=== PATIENT | female | born 1950 | race Caucasian/White ===

== ENCOUNTER 2020-03-05 10:59 | Emergency (ER) | payer MEDICARE, OTHER, SELFPAY ==
--- NOTE | ~2020-03-05 | CT_ITS ---
EXAMINATION: CT brain wo con DATE: 03/05/2020 12:21 INDICATION: Right facial numbness. TECHNIQUE: Computed tomography (CT) of the head was performed without intravenous contrast. The mA wa s adjusted according to patient size. Iterative reconstruction technique was employed. The dose-lengt h product was 529.67 mGy-cm. COMPARISON: None FINDINGS: There is no intracranial hemorrhage, acute infarction, or abnormal intracranial mass lesion . There is an old lacunar infarct in the left caudate nucleus. The ventricles are normal in size. The orbits are normal. There is mild mucosal thickening in the ethmoid sinuses. The mastoid air cells ar e normal. IMPRESSION: 1. Old lacunar infarct in the left caudate nucleus. Reviewed, dictated and finalized at location A.
[2020-03-05 11:22] VITALS: BP 159/84; PULSE 86; PULSE 90; RESP 18; TEMP 36.8; O2SAT 99
--- NOTE | 2020-03-05 11:30 | PC.NURSE ---
Pt taken to CT scan. This RN unable to obtain and IV. Will have another nurse try when pt returns.
--- NOTE | 2020-03-05 12:06 | ECG_ITS ---
Measurements Intervals [place] Rate: 95 P: 66 [place]: 158 QRS: 20 QRSD: 89 T: 51 QT: 328 QTc: 413 Interpretive Statements SINUS RHYTHM POSSIBLE LEFT ATRIAL ENLARGEMENT BORDERLINE ECG Electronically Signed On 03-05-2020 14:07:34 CDT by Marco Nicole D.O.
[2020-03-05 12:40] LABS: Basophils Percent Auto 0.6 % (0.2-1.2); Eosinophils Absolute Auto 0.1 K/mm3 (0-0.3); Eosinophils Percent Auto 0.7 % (0-4.4); Hematocrit 39.2 % (37.0-47.0); Immature Granulocyte Absolute 0.05 K/mm3 (0.00-0.031); Immature Granulocyte Percent A 0.7 % (0-0.5); Lymphocytes Absolute Auto 1.59 K/mm3 (0.9-3.2); Lymphocytes Percent Auto 21.9 % (18.3-44.2); Mean Corpuscular HGB Conc 33.2 g/dl (32-36); Mean Corpuscular Hemoglobin 30.9 pg (26-34); Mean Corpuscular Volume 93.1 fl (80-100); Monocytes Absolute Auto 0.3 K/mm3 (0.1-0.6); Monocytes Percent Auto 4.7 % (2.6-8.5); Neutrophils Absolute Auto 5.2 K/mm3 (1.3-6.7); Neutrophils Percent Auto 71.4 % (45.5-73.1); Platelet Count Result 235 k/mm3 (150-375); Red Blood Count 4.21 M/mm3 (4.2-5.4); Red Cell Distribution Width 12.5 % (11.5-14.5); White Blood Count 7.3 K/mm3 (4.5-10.0)
[2020-03-05 12:49] LABS: Prothrombin Time 12.7 Seconds (11.1-14.7)
[2020-03-05 12:50] LABS: Partial Thromboplastin Time 23.5 SECONDS (22.3-36.8)
[2020-03-05 12:53] LABS: Creatine Kinase 58 U/L (30-135)
[2020-03-05 12:58] LABS: Blood Urea Nitrogen 14 mg/dL (7-17); Calcium 9.2 mg/dL (8.4-10.2); Carbon Dioxide 28 mmol/L (22-30); Chloride 103 mmol/L (98-107); Estimated CRCL calculation 51 ml/min; Estimated Glomerular Filt Rate > 60; Glucose 106 mg/dL (65-105); Potassium 3.9 mmol/L (3.4-5.0); Sodium 137 mmol/L (137-145)
--- NOTE | 2020-03-05 13:00 | ED.GENADULT ---
HPI - General Adult General Chief complaint: Unspecified Stated complaint: r facial numbness Time Seen by Provider: 03/05/20 11:11 Source: patient Mode of arrival: ambulatory Limitations: no limitations History of Present Illness HPI narrative: This patient is a 69 year old female who presents for evaluation of right facial numbness. PAtient reports she has had numbnesss to right side of her face for 1 year. She states initially her symptoms were intermittent, but this numbness has been constant for 2 weeks. She also reports episodes of itching and zinging pain throughout her pain for 1 year . She denies focal weakness, headache, nausea or vomiting. She does not know of any exacerbating factors. Related Data Home Medications Medication Instructions Recorded Confirmed albuterol sulfate INHALATION 03/05/20 benzonatate mg PO 03/05/20 nitrofurantoin monohyd/m-cryst 100 03/05/20 prednisone 20 03/05/20 Allergies Allergy/AdvReac Type Severity Reaction Status Date / Time NKDA Allergy Mild Unknown Uncoded 03/05/20 11:29 NKFA Allergy Mild Unknown Uncoded 03/05/20 11:29 Review of Systems Review of Systems: All systems reviewed & are unremarkable except as noted in HPI and below Constitutional: Constitutional: Denies chills and Denies fever(s) ENT: Denies dizziness and Denies sore throat Cardiovascular: Cardiovascular: Denies chest pain Respiratory: Respiratory: Denies cough and Denies dyspnea Musculoskeletal: Musculoskeletal: Reports myalgias Integumentary/Breasts: Skin/Breast: Reports pruritus Neurologic: Denies headache(s), Denies focal weakness and Reports numbness PMFSH Past Medical History Medical History (Updated 03/05/20 @ 14:14 by Kita Rowell MD) Breast cancer Hypertension Surgical History Surgical History (Updated 03/05/20 @ 13:01 by Kita Rowell MD) H/O: hysterectomy Family History Family History (Updated 03/14/16 @ 23:21 by DOCTOR UNKNOWN) Mother Patient's mother is in good health Other Hypertension Social History Social History Smoking status: Never smoker Second hand tobacco smoke exposure: No Alcohol intake: current Gender identity (if verbalized by the patient): Female Exam Narrative: Exam Narrative: GENERAL: Well-appearing, well-nourished, and in no acute distress. HEAD: Normocephalic, atraumatic EYES: PERRLA and EOMI, conjunctiva clear without discharge THROAT:Mucous membranes moist, Oropharynx normal without erythema, exudate, peritonsillar swelling or fluctuance NECK: Supple, without lymphadenopathy or mass RESPIRATORY: No respiratory distress, Airway patent, Respirations non-labored, Clear to auscultation without rales, rhonchi or wheeze HEART: Regular rate and rhythm. No murmur heard. Normal peripheral pulses. ABDOMEN: Soft, nontender, nondistended, normal active bowel sounds. No masses. No rebound or guarding, No organomegaly. EXTREMITIES: No edema, normal strength with full range of motion. SKIN: Warm, dry, normal color without rash NEURO: Alert and oriented x3. CN 2-12 grossly intact. No focal deficits. PSYCH: Normal mood and affect. Course Consultations Consultation #1: I discussed with Dr. Duran patient's complaint and CT findings. He will follow up with patient and he states he thinks patient has an appointment this week. He is agreeable to start on aspirin. Date: 03/05/20 Time: 14:10 Vital Signs Vital signs: Vital Signs Temperature 98.2 F 03/05/20 11:22 Pulse Rate 90 03/05/20 11:22 Respiratory Rate 18 03/05/20 11:22 Blood Pressure 159/84 H 03/05/20 11:22 Pulse Oximetry 99 03/05/20 11:22 Temperature 98.2 F 03/05/20 11:22 Pulse Rate 77 03/05/20 15:17 Respiratory Rate 19 03/05/20 15:17 Blood Pressure 133/79 03/05/20 15:17 Pulse Oximetry 100 03/05/20 15:17 Medical Decision Making Vital Signs Vital Signs: Vital Signs Temperature 98.2 F 03/05/20 11:22 Pulse R
[2020-03-05 13:02] LABS: CRP < 0.5 mg/dL (<1.0)
[2020-03-05 13:03] LABS: Glucose Point of Care 108 (65-105)
[2020-03-05 13:08] LABS: Erythrocyte Sedimentation Rate 27 mm/hr (0-20)
[2020-03-05 13:09] LABS: Troponin I < 0.012 ng/mL (0.000-0.034)
[2020-03-05 15:17] VITALS: BP 133/79; PULSE 77; RESP 19; O2SAT 100
== END 2020-03-05 15:18 | disposition home or self-care (01) ==
PROVIDERS: Emergency Provider General Practice; PCP Internal Medicine
DX: R20.2 Paresthesia of skin (principal); Z85.3 Personal history of malignant neoplasm of breast; I10 Essential (primary) hypertension; R94.31 Abnormal electrocardiogram [ECG] [EKG]
CPT/HCPCS: 36415; 70450; 80048; 82550; 82948; 84443; 84484; 85025; 85610; 85652; 85730; 86140; 93005; 99284

== ENCOUNTER 2020-03-22 11:02 | Outpatient (CLI) | payer MEDICARE, OTHER, SELFPAY ==
--- NOTE | ~2020-03-22 | US_ITS ---
EXAMINATION: US carotid duplex BI DATE: 03/22/2020 11:57 INDICATION: Carotid stenosis TECHNIQUE: Grayscale, color Doppler, and pulsed Doppler images of the cervical carotid arteries were obtained. The degree of vessel stenosis is placed in one of the following categories: normal, <50%, 5 0-69%, >=70% but less than near-occlusion, near-occlusion, or total occlusion. Note that percent sten osis relative to normal distal artery lumen diameter is indirectly measured from velocity measurement s as described by Johnson, et al. Radiology 2003; 229:340-346. Notes: Normal: Peak systolic velocity <125 centimeters/sec and no plaque <50%. Peak systolic velocity <125 ( EDV <40; ICA/CCA PSV ratio <2.0; used these factors only a tandem lesions or low cardiac output or co ntralateral disease) 50-69 %: PSV 125-230 (EDV 40-100; ratio 2-4) >= 70% but less than near occlusion: PSV greater than 230 (EDV > 100; ratio> 4.0) Near Occlusion: PSV that is variable; markedly narrowed lumen Occlusion: Absent flow on color/spectral Doppler and no lumen on serrano scale. COMPARISON: None. FINDINGS: RIGHT: The right common carotid artery (CCA) peak systolic velocity (PSV) is 83 cm/s. The right internal car otid artery (ICA) PSV is 162 cm/s. The right ICA end-diastolic velocity (EDV) is 51 cm/s. The right I CA/CCA PSV ratio is 1.9. The external carotid artery (ECA) PSV is 96 cm/s. There is antegrade flow in the right vertebral artery. LEFT: The left CCA PSV is 89 cm/s. The left ICA PSV is 118 cm/s. The left ICA EDV is 35 cm/s. The left ICA/ CCA PSV ratio is 1.3. The ECA PSV is 99 cm/s. There is antegrade flow in the left vertebral artery. IMPRESSION: 1. 50-69% stenosis in the right internal carotid artery by sonographic criteria. 2. Less than 50% stenosis in the left internal carotid artery by sonographic criteria. Reviewed, dictated and finalized at location A. IMPRESSION: 1. 50-69% stenosis in the right internal carotid artery by sonographic criteria . 2. Less than 50% stenosis in the left internal carotid artery by sonographic cr iteria.
== END 2020-03-22 11:03 | disposition home or self-care (01) ==
LOC: ANHIMG 11:04
PROVIDERS: PCP Internal Medicine; Visit Provider Physician Assistant
DX: R20.0 Anesthesia of skin (principal); I65.23 Occlusion and stenosis of bilateral carotid arteries
CPT/HCPCS: 93880

== ENCOUNTER 2020-06-01 10:10 | Outpatient (CLI) | payer MEDICARE, OTHER, SELFPAY ==
--- NOTE | 2020-06-01 10:30 | EST_ITS ---
Patient Info Name: Ángel Ribeiro Age: 69 years : 1950 Gender: Female Ht: 62 in Wt: 147 lbs BSA: 1.73 m2 Exam Date: 06/01/2020 11:02 AM Exam Location: [facility] Patient Status: Outpatient Admit Date: 06/01/2020 Staff Ordering Physician: Rahul Glynn PA-C Attending Provider: Rahul Glynn PA-C Exercise Technologist: Marbella Corral RDCS Exercise Physician: Marco Nicole DO Exam Type: CA stress test treadmill Study Info Indications R07.9 - Chest pain, unspecified A treadmill exercise stress test was performed. Summary 1. 1. Negative Phillip exercise stress test for ischemic ST changes by ECG criteria. 2. 2. Good functional capacity, achieving 7 METs of workload. 3. 3. Appropriate HR response to exercise. 4. 4. Hypertensive response to exercise. 5. 5. Appropriate HR recovery at 1 minute post exercise. 6. 6. No imaging with stress testing. 7. 7. Patient informed of the above results. Protocol: Phillip Stress ECG Details Stage: REST Duration (min): 6 min : 24 sec Speed (mph): 0.0 Grade (%): 0 HR (bpm): 72 SBP (mmHg): 139 DBP (mmHg): 71 METS: --- Stage: REST Duration (min): 14 min : 23 sec Speed (mph): 0.0 Grade (%): 0 HR (bpm): 75 SBP (mmHg): 139 DBP (mmHg): 71 METS: --- Stage: STAGE 1 Duration (min): 1 min : 0 sec Speed (mph): 1.7 Grade (%): 10 HR (bpm): 110 SBP (mmHg): 139 DBP (mmHg): 71 METS: --- Stage: STAGE 1 Duration (min): 2 min : 0 sec Speed (mph): 1.7 Grade (%): 10 HR (bpm): 116 SBP (mmHg): 139 DBP (mmHg): 71 METS: --- Stage: STAGE 1 Duration (min): 3 min : 0 sec Speed (mph): 1.7 Grade (%): 10 HR (bpm): 123 SBP (mmHg): 182 DBP (mmHg): 75 METS: --- Stage: STAGE 2 Duration (min): 1 min : 0 sec Speed (mph): 2.5 Grade (%): 12 HR (bpm): 144 SBP (mmHg): 182 DBP (mmHg): 75 METS: --- Stage: STAGE 2 Duration (min): 2 min : 0 sec Speed (mph): 2.5 Grade (%): 12 HR (bpm): 156 SBP (mmHg): 198 DBP (mmHg): 77 METS: --- Stage: STAGE 2 Duration (min): 2 min : 0 sec Speed (mph): 2.5 Grade (%): 12 HR (bpm): 156 SBP (mmHg): 198 DBP (mmHg): 77 METS: --- Stage: RECOVERY Duration (min): 0 min : 59 sec Speed (mph): 0.0 Grade (%): 0 HR (bpm): 135 SBP (mmHg): 198 DBP (mmHg): 77 METS: --- Stage: RECOVERY Duration (min): 1 min : 59 sec Speed (mph): 0.0 Grade (%): 0 HR (bpm): 113 SBP (mmHg): 217 DBP (mmHg): 75 METS: --- Stage: RECOVERY Duration (min): 2 min : 59 sec Speed (mph): 0.0 Grade (%): 0 HR (bpm): 99 SBP (mmHg): 182 DBP (mmHg): 74 METS: --- Stage: RECOVERY Duration (min): 3 min : 59 sec Speed (mph): 0.0 Grade (%): 0 HR (bpm): 111 SBP (mmHg): 182 DBP (mmHg): 74 METS: --- Stage: R
== END 2020-06-01 10:11 | disposition home or self-care (01) ==
PROVIDERS: PCP Internal Medicine; Visit Provider Physician Assistant
DX: R07.9 Chest pain, unspecified (principal)
CPT/HCPCS: 93017

== ENCOUNTER 2020-06-12 10:12 | Outpatient (CLI) | payer MEDICARE, OTHER, SELFPAY ==
--- NOTE | ~2020-06-12 | XR_ITS ---
EXAMINATION: CT abdomen pelvis wo/w con, XR abdomen/kub 1V DATE: 06/12/2020 10:59 INDICATION: Microscopic hematuria TECHNIQUE: 1. Computed tomography (CT) of the abdomen and pelvis was performed without intravenous contrast. CT of the abdomen and pelvis was then performed with a total of 130 mL Omnipaque-350 intravenous contras t using a double-bolus technique for simultaneous opacification of the renal parenchyma and renal col lecting system. The dose-length product was 1123.56 mGy-cm. 2. AP view of the abdomen and pelvis was obtained on 2 radiographs. COMPARISON: None FINDINGS: CT UROGRAM: Lung bases are clear. Heart size is normal. No pericardial or pleural effusion. 2 cm cyst in the left hepatic lobe. Gallbladder, spleen, pancreas and bilateral adrenal glands are normal. Extensive colon ic diverticulosis without adjacent inflammatory change to suggest diverticulitis. Small bowel and vidhi endix are normal. No free intraperitoneal gas or fluid. No pathologically enlarged abdominal or pelvi c lymphadenopathy. Mild lumbar levocurvature. Moderate lower lumbar facet osteoarthritis. 1.2 cm scle rotic lesion in the supra-acetabular right ilium with spiculated margins oriented along the trabecula r axis and favor bone island over metastatic disease. No other sclerotic bone lesions identified. No urolithiasis. Left kidney is normal. There are couple subcentimeter right renal lesions, the small size decreasing sensitivity and specificity for enhancement. The lesion at the caudal tip of the rig ht kidney demonstrates relatively low attenuation on both pre and postcontrast imaging most likely re presenting a renal cyst. The slightly larger and more cephalad lesion in the lower pole measures 9 mm with soft tissue density slightly greater than the surrounding renal parenchyma with discernible leodan tral enhancement concerning for renal cell carcinoma. A short segment of the distalmost left ureter i s decompressed and unopacified on the postcontrast images. The right ureter is opacified in its entir ety. No urothelial irregularities or other filling defects identified in the contrast opacified bilat eral renal collecting systems or ureters. Bladder is normal. ABDOMEN RADIOGRAPH(S): A couple phleboliths in the left hemipelvis. No evident urolithiasis. Normal bowel gas pattern. Scler otic right iliac lesion. IMPRESSION: 1. 9 mm lesion at the lower pole of the right kidney which appears to demonstrate central enhancement concerning for renal cell carcinoma. Specificity is mildly decreased by the small size of the lesion . No urolithiasis, urothelial irregularities or other etiology for reported hematuria. 2. Diverticulosis. 3. 1.2 cm sclerotic right iliac lesion with appearance favoring bone island but could consider bone s can for further evaluation. Reviewed, dictated and finalized at location B. IMPRESSION: 1. 9 mm lesion at the lower pole of the right kidney which appears to demonstra te central enhancement concerning for renal cell carcinoma. Specificity is mild ly decreased by the small size of the lesion. No urolithiasis, urothelial irreg ularities or other etiology for reported hematuria. 2. Diverticulosis. 3. 1.2 cm sclerotic right iliac lesion with appearance favoring bone island but could consider bone scan for further evaluation.
[2020-06-12 10:43] LABS: Estimated Glomerular Filt Rate > 60
== END 2020-06-12 10:13 | disposition home or self-care (01) ==
LOC: ANHIMG 10:16
PROVIDERS: PCP Physician Assistant; Visit Provider Urology
DX: R31.29 Other microscopic hematuria (principal); K57.30 Diverticulosis of large intestine without perforation or abscess without bleeding
CPT/HCPCS: 74018; 74178; Q9967

== ENCOUNTER 2020-06-30 00:45 | Outpatient (CLI) | payer MEDICARE, OTHER, SELFPAY ==
[2020-06-30 21:19] LABS: SARS-CoV-2 RNA PCR Negative
== END 2020-06-30 00:46 | disposition home or self-care (01) ==
LOC: ANHCOVIDDT 00:46
PROVIDERS: PCP Physician Assistant; Visit Provider Internal Medicine Gastroenterology
DX: Z01.812 Encounter for preprocedural laboratory examination (principal); Z20.828 Contact with and (suspected) exposure to other viral communicable diseases
CPT/HCPCS: 87635; C9803; U0003

== ENCOUNTER 2020-07-04 02:18 | Day surgery (SDC) | payer MEDICARE, OTHER, SELFPAY ==
[2020-06-28 09:22] VITALS: BMI 26.6
--- NOTE | 2020-07-04 06:55 | P.PNAN_ITS ---
Anes - Initial Pre Proc Eval Procedure: Operation Date: 07/04/20 09:00 Proposed Procedures p Screening Colonoscopy - Brady Ball MD Date/Time: 07/04/20 06:55 Surgeon: Brady Ball MD Pre Op Diagnosis: neoplasm screening Patient Data Age: 69 Gender: F Height: 1.57 m Weight: 66 kg Allergies Allergy/AdvReac Type Severity Reaction Status Date / Time No Known Allergies Allergy Verified 07/04/20 07:38 Home Medications Medication Instructions Recorded Confirmed Type albuterol sulfate 90 mcg/actuation 2 puff INHALATION Q4-6H PRN gm 03/07/20 06/28/20 History aerosol inhaler azilsartan medoxomil 40 0.5 tablet PO DAILY tablet 03/07/20 06/28/20 History mg-chlorthalidone 25 mg tablet mecobalamin (vitamin B12) 1,000 1,000 mcg PO DAILY 03/07/20 06/28/20 History mcg disintegrating tablet,sublingual cetirizine [Zyrtec] 10 mg PO PRN PRN 06/28/20 06/28/20 History cholecalciferol (vitamin D3) 25 mcg PO DAILY 06/28/20 06/28/20 History [Vitamin D3] fluticasone propionate [Flonase] 1 spray INTRANASAL DAILY PRN 06/28/20 06/28/20 History Patient hx anesthesia problems: none Family hx anesthesia problems: none PMFSH Past Medical History Medical History (Updated 07/04/20 @ 06:56 by Cody Granado MD) Breast cancer Breast implant removal status CVA (cerebral vascular accident) Hypertension Surgical History Surgical History H/O: hysterectomy Hx of knee surgery S/P Mohs surgery for basal cell carcinoma Family History Family History Mother Patient's mother is in good health Other Hypertension Social History Social History Smoking status: Never smoker Second hand tobacco smoke exposure: No Alcohol intake: current Drinks per week: 0 Alcohol use details: WINE Substance use: never Substance use type: does not use Living arrangements: with family Gender identity (if verbalized by the patient): Female Spiritual care concerns: No Anes - Eval Final PreProcedure Day of Procedure 07/04/20 06:55 Patient weight: overweight Heart: regular rate and rhythm Lungs: clear to auscultation and normal air movement Airway: Mallampati scale class II Neurological: alert and oriented Last oral intake: >/= 8 hours ASA classification: III Emergent: no Anesthetic plan: proceed Anesthesia type and monitoring: general GIVS Informed Consent: The patient's anesthetic plan and its attendant risks and benefits were discussed with the patient/family/POA. Questions were solicited a nd answers provided to the satisfaction of the patient/family/POA.
[2020-07-04 07:39] VITALS: BP 141/78; PULSE 98; RESP 18; TEMP 37; O2SAT 98; BMI 26.5
[2020-07-04] MEDS: LACTATED RINGERS 1,000 ML 150 ML IV CONT (07:50)
--- NOTE | 2020-07-04 08:28 | WPDGICN ---
Assessment and Plan Assessment and plan (1) Screening for colorectal cancer: Code(s): Z12.11 - Encounter for screening for malignant neoplasm of colon; Z12.12 - Encounter for screening for malignant neoplasm of rectum Status: Acute Assessment and Plan: Patient appears to be at average risk for colon polyps. Surveillance colonoscopy advised at this time. High-fiber diet may help with her tends it towards constipation. Metamucil with occasional use of MiraLax is suggested at this time. GI Consult Note Consult date/time: 07/04/20 08:28 HPI: Ángel Ribeiro is a 69 year old female seen in evaluation at the request of Gretta MAYER, and Dr Duran. Patient presents for screening colonoscopy. She does report NC towards constipation. She denies any bleeding. She has had bouts of abdominal discomfort attributed to diverticulosis. Recent CT scan confirmed diverticulosis. No recent evidence for diverticulitis. Her family history is noncontributory. No known history of colon or rectal disease. Review of Systems Review of Systems: All systems reviewed & are unremarkable except as noted in HPI and below PMFSH Past Medical History Medical History (Updated 07/04/20 @ 06:56 by Cody Granado MD) Breast cancer Breast implant removal status CVA (cerebral vascular accident) Hypertension Surgical History Surgical History H/O: hysterectomy Hx of knee surgery S/P Mohs surgery for basal cell carcinoma Family History Family History Mother Patient's mother is in good health Other Hypertension Social History Social History Smoking status: Never smoker Second hand tobacco smoke exposure: No Alcohol intake: current Drinks per week: 0 Alcohol use details: WINE Substance use: never Substance use type: does not use Living arrangements: with family Gender identity (if verbalized by the patient): Female Spiritual care concerns: No Meds Home Medications and Allergies Home Medications Medication Instructions Recorded Confirmed Type albuterol sulfate 90 mcg/actuation 2 puff INHALATION Q4-6H PRN gm 03/07/20 06/28/20 History aerosol inhaler azilsartan medoxomil 40 0.5 tablet PO DAILY tablet 03/07/20 06/28/20 History mg-chlorthalidone 25 mg tablet mecobalamin (vitamin B12) 1,000 1,000 mcg PO DAILY 03/07/20 06/28/20 History mcg disintegrating tablet,sublingual cetirizine [Zyrtec] 10 mg PO PRN PRN 06/28/20 06/28/20 History cholecalciferol (vitamin D3) 25 mcg PO DAILY 06/28/20 06/28/20 History [Vitamin D3] fluticasone propionate [Flonase] 1 spray INTRANASAL DAILY PRN 06/28/20 06/28/20 History Allergies Allergy/AdvReac Type Severity Reaction Status Date / Time No Known Allergies Allergy Verified 07/04/20 07:38 Vital Signs Vital Signs - 24 hr 07/04/20 07:39 Temperature 98.6 F Pulse Rate 98 Respiratory Rate 18 Blood Pressure 141/78 H Pulse Oximetry 98 Exam Narrative: Exam Narrative: Physical exam reveals patient to be alert. Vital signs stable. HEENT exam unremarkable. Lungs are clear to auscultation and percussion. Heart is without murmur or extra sounds. Abdominal exam bowel sounds are present soft nontender with no organomegaly. Digital external rectal exam normal.
[2020-07-04 08:46] VITALS: BP 106/53; PULSE 74; RESP 18; O2SAT 97
[2020-07-04 08:56] VITALS: BP 115/61; PULSE 76; RESP 20; O2SAT 100
[2020-07-04 09:06] VITALS: BP 131/61; PULSE 73; RESP 15; O2SAT 100
[2020-07-04 09:16] VITALS: BP 120/81; PULSE 79; RESP 17; O2SAT 100
== END 2020-07-04 09:30 | disposition home or self-care (01) ==
PROVIDERS: PCP Physician Assistant; Visit Provider Internal Medicine Gastroenterology
PROC: 0DJD8ZZ Inspection of Lower Intestinal Tract, Via Natural or Artificial Opening Endoscopic (ICD-10-PCS; CPT 45378; principal; 2020-07-04 09:00)
DX: Z12.11 Encounter for screening for malignant neoplasm of colon (principal); K64.8 Other hemorrhoids; K57.30 Diverticulosis of large intestine without perforation or abscess without bleeding; I10 Essential (primary) hypertension; Z86.73 Personal history of transient ischemic attack (TIA), and cerebral infarction without residual deficits; Z85.3 Personal history of malignant neoplasm of breast
CPT/HCPCS: G0121; J2704; J7120

== ENCOUNTER 2023-01-11 07:44 | Emergency (ER) | payer MEDICARE, OTHER, SELFPAY ==
--- NOTE | ~2023-01-11 | XR_ITS ---
EXAMINATION: XR chest 1V portable DATE: 01/11/2023 08:33 INDICATION: Tachycardia. TECHNIQUE: A single frontal view of the chest was obtained. COMPARISON: CT abdomen and pelvis 06/12/2020 FINDINGS: The chest demonstrates clear lungs without pneumonia, pleural effusion, or pneumothorax. Th e heart size is normal. There is a benign bone island in right sixth rib. A percutaneous drain overli es the left breast. IMPRESSION: 1. No acute cardiopulmonary disease. Reviewed, dictated and finalized at location A.
[2023-01-11 07:48] VITALS: BP 135/89; PULSE 131; RESP 14; TEMP 36.6; O2SAT 100
[2023-01-11 07:52] VITALS: BP 135/89; PULSE 128; RESP 14; O2SAT 100
--- NOTE | 2023-01-11 07:58 | ECG_ITS ---
Measurements Intervals [place] Rate: 121 P: 27 TN: 183 QRS: 11 QRSD: 87 T: 27 QT: 300 QTc: 427 Interpretive Statements SINUS TACHYCARDIA ABNORMAL ECG COMPARED TO ECG 03/05/2020 11:08:09 SINUS TACHYCARDIA NOW PRESENT Electronically Signed On 01-11-2023 13:45:51 CDT by Marco Nicole D.O.
--- NOTE | 2023-01-11 08:12 | ED.RECABL ---
HPI - Recheck/Abnormal Lab/Rx General Chief Complaint: Recheck/Abnormal Lab/Rx Stated Complaint: high blood pressure, high pulse x 3 weeks Time Seen by Provider: 01/11/23 08:12 Source: patient and RN notes reviewed Mode of arrival: ambulatory Limitations: no limitations History of Present Illness HPI narrative: 72 years old white female drove herself to the ED from home because of increased heart rate over the last few weeks, was seen by her family physician 4 days ago for the same problem. Patient denies any fever, chills, nausea, vomiting, chest pain, shortness of breath, headache, back pain or leg pain. History of hypertension, does not smoke, drinks occasionally does not use drugs. History of severe stress because of left breast cancer, mastectomy few years ago, failed implant with recent surgery at [facility] and currently have drain at that area which have about 5 cc clear discharge Related Data Home Medications Medication Instructions Recorded Confirmed mecobalamin (vitamin B12) 1,000 1,000 mcg PO DAILY 03/07/20 01/07/23 mcg disintegrating tablet,sublingual cetirizine 10 mg capsule (Zyrtec) 10 mg PO PRN PRN Allergy Symptoms 06/28/20 01/07/23 cholecalciferol (vitamin D3) 25 25 mcg PO DAILY 06/28/20 01/07/23 mcg (1,000 unit) capsule (Vitamin D3) Allergies Allergy/AdvReac Type Severity Reaction Status Date / Time No Known Allergies Allergy Verified 01/11/23 07:53 Review of Systems Review of Systems: All systems reviewed & are unremarkable except as noted in HPI and below PMFSH Past Medical History Medical History Breast cancer Breast implant removal status CVA (cerebral vascular accident) Hematuria Hyperlipidemia Hypertension Surgical History Surgical History H/O: hysterectomy Hx of knee surgery S/P Mohs surgery for basal cell carcinoma Family History Family History Mother Patient's mother is in good health Other Hypertension Social History Social History Smoking status: Never smoker Second hand tobacco smoke exposure: No Alcohol intake: current Drinks per week: 0 Alcohol use details: WINE Substance use: never Substance use type: does not use Lack of Transportation: No Lack of Food: Never True Current Housing: I Have Housing Concerned About Future Housing: No Difficulty Paying Gas/Electric Bills: No Difficulty Paying for Meds: No Currently Unemployed: No Education: High School Diploma/GED Difficulty w/ Childcare or Family Care: No Living arrangements: with family Gender identity (if verbalized by the patient): Female Spiritual care concerns: No Exam Narrative: General appearance: Well-developed, well-nourished, looks depressed, tears and eye, about to cry while talking about her breast cancer Skin: Normal color Head: Normocephalic, nontraumatic Eyes: Clear conjunctiva ENT: Oropharynx normal, ears normal, nose normal Neck: Supple, nontender Chest and respiratory: Airway patent, no respiratory distress, no accessory muscle use. Left breast exam showed scar, deformity, slight diffuse tenderness, drains are in place, draining clear discharge, no erythema no warmth Heart: Tachycardia, regular rate Abdomen: Soft, nontender, no organomegaly, quiet bowel sounds Vascular: Normal peripheral pulses, normal capillary refill. Musculoskeletal: Normal range of motion, nontender back Neurologic: Alert and oriented ?3, [employer] is normal as tested, no gross motor deficit
[2023-01-11 08:31] VITALS: BP 132/116; PULSE 116; RESP 16; O2SAT 99
[2023-01-11 08:45] VITALS: PULSE 119; RESP 15; O2SAT 98
[2023-01-11 08:49] LABS: Basophils Percent Auto 0.6 % (0.2-1.2); Eosinophils Absolute Auto 0.2 K/mm3 (0-0.3); Eosinophils Percent Auto 2.7 % (0-4.4); Hematocrit 36.6 % (37.0-47.0); Hemoglobin 11.7 g/dL (12.0-15.0); Immature Granulocyte Absolute 0.01 K/mm3 (0.00-0.031); Immature Granulocyte Percent A 0.2 % (0-0.5); Lymphocytes Absolute Auto 2.07 K/mm3 (0.9-3.2); Lymphocytes Percent Auto 31.3 % (18.3-44.2); Mean Corpuscular Hemoglobin 29.8 pg (26-34); Mean Corpuscular Volume 93.4 fl (80-100); Mean Platelet Volume 9.5 fl (7.4-10.4); Monocytes Absolute Auto 0.5 K/mm3 (0.1-0.6); Monocytes Percent Auto 7.6 % (2.6-8.5); Neutrophils Absolute Auto 3.8 K/mm3 (1.3-6.7); Neutrophils Percent Auto 57.6 % (45.5-73.1); Platelet Count Result 327 k/mm3 (150-375); Red Blood Count 3.92 M/mm3 (4.2-5.4); Red Cell Distribution Width 12.8 % (11.5-14.5); White Blood Count 6.6 K/mm3 (4.5-10.0)
[2023-01-11 08:58] LABS: INR 0.9; Prothrombin Time 12.7 Seconds (11.1-14.7)
[2023-01-11 08:59] LABS: Partial Thromboplastin Time 24.9 SECONDS (22.3-36.8)
[2023-01-11 09:03] LABS: Appearance Urine Clear (Clear); Bacteria Urine None Seen /hpf; Bilirubin Urine Negative (Negative); Blood Urine 1+ (Negative); Color Urine Yellow (Yellow); Glucose Urine UA Negative (Negative); Ketones Urine Negative (Negative); Leukocyte Esterase Ur Trace LEU/UL (Negative); Nitrate Urine Negative (Negative); Non Pathogenic Casts 0-2; Protein Urine Negative (Negative); Specific Grav Ur 1.009 (1.001-1.035); Squamous Epithelial Cell Urine None seen /hpf (Few); Urobilinogen Urine 0.2 mg/dL (<2.0); WBC Urine 0-5 /hpf
[2023-01-11] MEDS: SODIUM CHLORIDE 0.9% IV 1,000 ML 999 ML IV CONT (09:08)
[2023-01-11] MEDS: LORazepam INJ (*CRX) 2 MG/ML VIAL 1 MG IV PUSH (09:09)
[2023-01-11 09:31] LABS: Alanine Aminotransferase 19 U/L (6-35); Albumin Level 3.8 g/dL (3.5-5.1); Alkaline Phosphatase 95 U/L (38-126); Anion Gap 5 mmol/L (8-16); Aspartate Amino Transferase 25 U/L (14-36); Bilirubin,Total 0.3 mg/dL (0.2-1.3); Blood Urea Nitrogen 15 mg/dL (7-17); Calcium 8.8 mg/dL (8.4-10.2); Carbon Dioxide 31 mmol/L (22-30); Chloride 104 mmol/L (98-107); Estimated CRCL calculation 50 ml/min; Estimated Glomerular Filt Rate > 60; Glucose 113 mg/dL (65-110); Sodium 140 mmol/L (137-145)
[2023-01-11 09:33] LABS: Add Urine Microscopic? YES
[2023-01-11 09:43] LABS: Amphetamine Screen Urine Negative (Negative); Barbiturate Screen Urine Negative (Negative); Benzodiazepines Screen Urine Negative (Negative); Cannabinoid Screen Urine Negative (Negative); Cocaine Screen Urine Negative (Negative); Methadone Screen Urine Negative (Negative); Opiate Screen Urine Negative (Negative); Phencyclidine Screen Urine Negative (Negative)
[2023-01-11 09:45] VITALS: PULSE 106; RESP 17
[2023-01-11 09:45] LABS: NT Pro B Type Natriuretic Pept 207 pg/mL (19.9-100); Troponin I < 0.012 ng/mL (0.000-0.034)
--- NOTE | 2023-01-11 10:50 | PC.NURSE ---
PT is wanting to wait until fluids are finished before discharging.
[2023-01-11 10:51] VITALS: BP 128/68; PULSE 112; RESP 18; O2SAT 100
== END 2023-01-11 11:05 | disposition home or self-care (01) ==
PROVIDERS: Emergency Provider Emergency Medicine; PCP Internal Medicine
DX: R00.0 Tachycardia, unspecified (principal); F32.A Depression, unspecified; E78.5 Hyperlipidemia, unspecified; I10 Essential (primary) hypertension; Z85.3 Personal history of malignant neoplasm of breast; Z86.73 Personal history of transient ischemic attack (TIA), and cerebral infarction without residual deficits; Z85.828 Personal history of other malignant neoplasm of skin; Z90.710 Acquired absence of both cervix and uterus; Z79.899 Other long term (current) drug therapy
CPT/HCPCS: 36415; 71045; 80053; 80307; 81001; 83880; 84443; 84484; 85025; 85610; 85730; 93005; 96374; 99284; J2060; J7030

== ENCOUNTER 2023-01-21 08:19 | Outpatient (CLI) | payer MEDICARE, OTHER, SELFPAY ==
--- NOTE | ~2023-01-21 | US_ITS ---
EXAMINATION: US carotid duplex BI DATE: 01/21/2023 09:03 INDICATION: Dizziness and giddiness TECHNIQUE: Grayscale, color Doppler, and pulsed Doppler images of the cervical carotid arteries were obtained. The degree of vessel stenosis is placed in one of the following categories: normal, <50%, 5 0-69%, >=70% but less than near-occlusion, near-occlusion, or total occlusion. Note that percent sten osis relative to normal distal artery lumen diameter is indirectly measured from velocity measurement s as described by Johnson, et al. Radiology 2003; 229:340-346. Notes: Normal: Peak systolic velocity <125 centimeters/sec and no plaque <50%. Peak systolic velocity <125 ( EDV <40; ICA/CCA PSV ratio <2.0; used these factors only a tandem lesions or low cardiac output or co ntralateral disease) 50-69 %: PSV 125-230 (EDV 40-100; ratio 2-4) >= 70% but less than near occlusion: PSV greater than 230 (EDV > 100; ratio> 4.0) Near Occlusion: PSV that is variable; markedly narrowed lumen Occlusion: Absent flow on color/spectral Doppler and no lumen on serrano scale. COMPARISON: Ultrasound dated 03/22/2020. FINDINGS: RIGHT: The right common carotid artery (CCA) peak systolic velocity (PSV) is 74 cm/s. The right internal car otid artery (ICA) PSV is 83 cm/s. The right ICA end-diastolic velocity (EDV) is 30 cm/s. The right IC A/CCA PSV ratio is 1.1. The external carotid artery (ECA) PSV is 71 cm/s. There is antegrade flow in the right vertebral artery. LEFT: The left CCA PSV is 64 cm/s. The left ICA PSV is 76 cm/s. The left ICA EDV is 27 cm/s. The left ICA/C CA PSV ratio is 1.2. The ECA PSV is 64 cm/s. There is antegrade flow in the left vertebral artery. IMPRESSION: 1. Less than 50% stenosis in the right internal carotid artery by sonographic criteria. 2. Less than 50% stenosis in the left internal carotid artery by sonographic criteria. Reviewed, dictated and finalized at location A. IMPRESSION: 1. Less than 50% stenosis in the right internal carotid artery by sonographic mery vega. 2. Less than 50% stenosis in the left internal carotid artery by sonographic morgan frederick.
--- NOTE | ~2023-01-21 | CT_ITS ---
Non-contrast Head CT History: Headache, dizziness COMPARISON: 03/05/2020 Technique: Axial non-contrast imaging of the brain was performed. Dose reduction technique was used on this scan by utilizing automated exposure control and iterative reconstruction technique. The dose -length product (DLP) was 605.33 mGy-cm. Findings: There is no evidence of intracranial hemorrhage, mass lesion, or acute infarct. Brain par enchyma appears normal. The ventricles and subarachnoid spaces are normal in size. The calvarium ap pears normal. The visualized paranasal sinuses and mastoid air cells are clear. Impression: No significant abnormality seen. Reviewed, dictated and finalized at location . Impression: No significant abnormality seen.
--- NOTE | 2023-01-23 16:00 | WPDHOLTEREM ---
Holter/Event Monitor Holter/Event Monitor Date of procedure: 01/21/23 Holter/Event Procedure: 48 Hr Holter Monitor Indications: Dizziness Conclusion: 1. 48 hour holter monitor on 01/21/23. 2. Underlying rhythm is sinus rhythm. HR range 60-143 bpm; average HR 92 bpm. 3. There are 45 premature supraventricular complexes and 2 supraventricular couplets. No supraventricular tachycardia. 4. There are 1,097 premature ventricular complexes and 1 ventricular couplet. No ventricular tachycardia. 5. No sinoatrial or atrioventricular blocks. No significant pauses greater than 2 seconds. 6. Patient reports patient event at 10:03 which demonstrate sinus tachycardia at 124 bpm.
== END 2023-01-21 08:20 | disposition home or self-care (01) ==
PROVIDERS: PCP Internal Medicine; Visit Provider Internal Medicine
DX: R42 Dizziness and giddiness (principal); I65.23 Occlusion and stenosis of bilateral carotid arteries; R94.8 Abnormal results of function studies of other organs and systems
CPT/HCPCS: 70450; 93225; 93226; 93880

== ENCOUNTER 2024-05-18 08:51 | Outpatient (CLI) | payer MEDICARE, OTHER, SELFPAY ==
--- NOTE | ~2024-05-18 | XR_ITS ---
[id number] Ordering provider: Jerson Ndiaye DO History: . R07.81 - Pleurodynia . Comparison: None. FINDINGS: BONES: No acute left rib fracture or fracture of the visualized osseous structures. Dextroscoliosis with degenerative changes of the spine. LEFT LUNG: No effusions or infiltrates. No pneumothorax. Granuloma in the right lower lobe. SOFT TISSUES: Normal. IMPRESSION: No obvious left rib fracture. NO ACUTE CARDIOPULMONARY PATHOLOGY. Reviewed, dictated and finalized at location A.
== END 2024-05-18 08:52 | disposition home or self-care (01) ==
PROVIDERS: PCP Internal Medicine; Visit Provider Internal Medicine
DX: R07.81 Pleurodynia (principal)
CPT/HCPCS: 71101

== ENCOUNTER 2025-05-25 14:03 | Outpatient (CLI) | payer MEDICARE, OTHER, SELFPAY ==
--- NOTE | ~2025-05-25 | XR_ITS ---
EXAMINATION: XR chest 2V, 05/25/2025 14:20 CDT HISTORY: R07.9 - Chest pain, unspecified COMPARISON: No comparisons available. Technique: 2 views obtained. Findings: The lungs are clear, no effusion. No pneumothorax. Heart is normal size. Mediastinal and hilar contours are within normal limits. Bony thorax no acute abnormality. Impression: No acute cardiopulmonary abnormality. Reviewed, dictated and finalized at location P. Impression: No acute cardiopulmonary abnormality.
--- NOTE | ~2025-05-25 | XR_ITS ---
EXAMINATION: XR shoulder RT min 2V, 05/25/2025 14:20 CDT HISTORY: M25.511 - Pain in right shoulder COMPARISON: No comparisons available. Findings: No acute fracture or malalignment. No significant degenerative changes. Soft tissues unremarkable. Impression: No acute fracture or malalignment. Reviewed, dictated and finalized at location P. Impression: No acute fracture or malalignment.
--- OUTSIDE RECORDS SUMMARY | 2025-05-25 14:08 | XMS_ITS | Encounter Summary ---
Author Organization [facility] Address [address] [place] [address] Care Team Providers Care Lumber Mover Name Role Phone Jose Jay MD Unavailable Mj Duran DO Primary Care Provider [phone] Encounter Details Date Type Department Care Team (Late st Contact Info) Description 10/17/2016 [facility] Outpatient Visit [facility] Orthopedics [address] [place] [address] Melchor Alvarado MD [address] [place] [address] Social History Tobacco Use Types Packs/Day Years Used Date Smoking Tobacco: Never Comments Unknown Sex and Gender Information Value Date Recorded Sex Assigned at Not on file 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
--- OUTSIDE RECORDS SUMMARY | 2025-05-25 14:08 | XMS_ITS | Encounter Summary ---
Author Organization [facility] Healthcare Address [address] [place] [address] Care Team Providers Care Solar Electric/Photovoltaic Installer Name Role Phone Mj Duran MD Primary Care Provider [phone] No, Physician Unavailable Jerson Ndiaye DO Primary Care Provider [phone] Encounter Details Date Type Department Care Team (Late st Contact Info) Description 08/23/2020 Telephone [facility] - Interventional Radiology [address] [place] [address] Ale Pandey RN Social History Tobacco Use Types Packs/Day Years Used Date Smoking Tobacco: Never Smokeless Tobacco: Never Alcohol Use Standard Drinks/Week Comments Yes 3 (1 standard drink = 0.6 oz pur e alcohol) Comments No Sex and Gender Information Value Date Recorded Sex Assigned at Not on file Legal Sex Female 1:28 AM 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
--- OUTSIDE RECORDS SUMMARY | 2025-05-25 14:08 | XMS_ITS | Encounter Summary ---
Author Organization [facility] Address [facility] [place] [address] Care Team Providers Care Textiles Sales Representative Name Role Phone Jose Jay MD Unavailable Mj Duran DO Primary Care Provider [phone] Encounter Details Date Type Department Care Team (Late st Contact Info) Description 12/29/2022 Lab Requisition [facility] - DermPath Lab [address] [facility], [place] [phone] Nidhi Smith MD [address] [facility] [address] [place] [address] Social History Tobacco Use Types Packs/Day Years Used Date Smoking Tobacco: Never Alcohol Use Standard Drinks/Week Comments Yes 0 (1 standard drink = 0.6 oz pur e alcohol) rare Comments Unknown Sex and Gender Information Value Date Recorded Sex Assigned at Not on file Legal Sex Female 9:48 AM ZANJERO Gender Identity Not on file Sexual Orientation Not on file documented as of this encounter Functional Status * Is person deaf or have serious hearing difficulty? Answer Date of Assessment Author No 10/21/2016 8:59 AM Ronn Bradford RN * Is person blind or have serious difficulty seeing? Answer Date of Assessment Author No 10/21/2016 8:59 AM Ronn Bradford RN * Does person have serious difficulty walking/climbing stairs? Answer Date of Assessment Author No 10/21/2016 8:59 AM Ronn Bradford RN * Does person have difficulty dressing/bathing? Answer Date of Assessment Author No 10/21/2016 8:59 AM Ronn Bradford RN * Does person have difficulty doing errands alone? Answer Date of Assessment Author No 10/21/2016 8:59 AM Ronn Bradford RN documented as of this encounter Mental Status * Does person have difficulty concentrating/remembering/making decisions? Answer Entry Date Author No 10/21/2016 8:59 AM Ronn Bradford RN documented in this encounter Plan of Treatment Not on file documented as of this encounter Procedures Procedure Name Priority Date/Time Associated Diagnosis Comments DERMATOPATHOLOGY Routine 12/29/2022 3:36 PM CDT documented in this encounter Results * DERMATOPATHOLOGY (12/29/2022 3:36 PM CDT) Case Report Dermatopathology Report Case: [id number] Authorizing Provider: Nidhi Smith MD Collected: 12/29/2022 03:36 PM Ordering Location: [facility] Received: 12/30/2022 03:39 PM Pathologist: Liliam Monique MD Specimen: Skin, mid back 3 12:49 PM CDT DERMATOPATHOLOGY LABORATORY Final Diagnosis Specimen A. SKIN, mid back: LENTIGINOUS MELANOCYTIC NEVUS, COMPOUND TYPE, IRRITATED (D22.5) 3 12:49 PM CDT DERMATOPATHOLOGY LABORATORY at 1249 CDT Clinical History R/O: MELANOMA, NEVUS, IRREGULAR BORDER, IRREGULAR COLOR; BROWN PAPULE REMOTE HX OF RADIATION 3 12:49 PM CDT DERMATOPATHOLOGY LABORATORY Gross Description Specimen A: Received is one formalin filled container labeled with the patient's name and designated mid back. The specimen consists of a shave biopsy measuring 6x7x1 mm. Jar 0. 3 12:49 PM CDT DERMATOPATHOLOGY LABORATORY Microscopic Description Specimen A. SKIN, mid back: This is a compound nevus. There is melanin pigment in the stratum corneum. There is a lentiginous proliferation of melanocytes between nevus nests of cells along the dermal epidermal junction. There is underlying fibroplasia of the papillary dermis. The intradermal component is bland in appearance and matures with depth. (Compound Gee's Nevus) 3 12:49 PM CDT DERMATOPATHOLOGY LABORATORY Disclaimer An external and internal positive and negative controls are appropriate for the histochemical, immunohistochemical and immunofluorescence stain(s) in this case (if any), except where stated explicitly. The performance characteristics of the stain(s) cited in this report were developed and its performance characteristic determined by the Dermatopathology Laboratory at [facility], directed by Dr. Mariza Arreola. These tests need not be, and therefore are not, approved by the [place] Food and Drug Administration. The tests are used for clinical purposes. Billing Codes Specimen Charges Stain Charges 06823 1 3 12:49 PM CDT DERMATOPATHOLOGY LABORATORY Embedded Images 3 12:49 PM CDT DERMATOPATHOLOGY LABORATORY Pathology/Cytolo gy TISSUE SPECIMEN FROM SKIN / Unknown 12/29/2022 3:36 PM CDT 12/30/2022 3:39 PM CDT Nidhi Smith MD LAB - PATHOLOGY/CYTOLOGY ORD ERABLES Final Result DERMATOPATHOLOGY LABORATORY [facility] - Department of Dermatology [facility] Medicine [address] [place] [address], [address] [phone] documented in this encounter Visit Diagnoses Not on filedocumented in this encounter Care Teams Textiles Sales Representative Relationship Specialty Start Date End Date Mj Duran DO [address] [facility] [address] [facility] [address] [place] [address] PCP - General Internal Medicine 08/04/16 [place] [address] [place] [address] Orthopedic Surgery 08/04/16 documented as of this encounter
--- OUTSIDE RECORDS SUMMARY | 2025-05-25 14:08 | XMS_ITS | Encounter Summary ---
Author Organization [facility] Address [facility] [place] [address] Care Team Providers Care Right Of Way Man Name Role Phone Jose Jay MD Unavailable Mj Duran DO Primary Care Provider [phone] Encounter Details Date Type Department Care Team (Late st Contact Info) Description 10/27/2023 Lab Requisition [facility] - Derm[facility] Lab [address] [facility] [place] [phone] Nidhi Smith MD [address] [facility] [address] [place] [address] Social History Tobacco Use Types Packs/Day Years Used Date Smoking Tobacco: Never Alcohol Use Standard Drinks/Week Comments Yes 0 (1 standard drink = 0.6 oz pur e alcohol) rare Comments Unknown Sex and Gender Information Value Date Recorded Sex Assigned at Not on file 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 Gender Identity Not on file Sexual Orientation [...] Priority Date/Time Associated Diagnosis Comments DERMATOPATHOLOGY Routine 10/27/2023 1:54 PM CDT documented in this encounter Results * DERMATOPATHOLOGY (10/27/2023 1:54 PM CDT) Case Report Dermatopathology Report Case: [id number] Authorizing Provider: Nidhi Smith MD Collected: 10/27/2023 01:54 PM Ordering Location: [facility] - Received: 10/28/2023 11:08 AM DermPath Lab Pathologist: Thania Shay MD Specimen: Skin, left ala 9:47 AM CDT DERMATOPATHOLOGY LABORATORY Amended Report At the request of the clinician, change in laterality from right to left ala. 9:47 AM CDT DERMATOPATHOLOGY LABORATORY Final Diagnosis Specimen A. SKIN, left ala: ACTINIC KERATOSIS; EXTENDING TO THE BASE OF THE SPECIMEN (L57.0) (see microscopic description and comment) 9:47 AM CDT DERMATOPATHOLOGY LABORATORY Amendment electronically signed by Thania Shay MD on 02/19/2024 at 0947 CDT at 1524 CDT Clinical History R/O BCC Angioma ,[place] 9:47 AM CDT DERMATOPATHOLOGY LABORATORY Gross Description Specimen A: Received is one formalin filled container labeled with the patient's name and designated left ala. The specimen consists of a shave biopsy measuring 2x2x1 mm. Jar 0. 9:47 AM CDT DERMATOPATHOLOGY LABORATORY Microscopic Description Specimen A. SKIN, left ala: There is focal parakeratosis. The lower half of the epidermis shows disorderly maturation of keratinocytes with nuclear pleomorphism. This process extends to the base of the specimen. Additional deeper sections were obtained and reviewed. COMMENT: A squamous cell carcinoma cannot be ruled out. 4 9:47 AM CDT DERMATOPATHOLOGY LABORATORY Disclaimer An external and internal positive and negative controls are appropriate for the histochemical, immunohistochemical and immunofluorescence stain(s) in this case (if any), except where stated explicitly. The performance characteristics of the stain(s) cited in this report were developed and its performance characteristic determined by the Dermatopathology Laboratory at [facility], directed by Dr. Mariza Arreola. These tests need not be, and therefore are not, approved by the [place] Food and Drug Administration. The tests are used for clinical purposes. Billing Codes Specimen Charges Stain Charges 85259 1 4 9:47 AM CDT DERMATOPATHOLOGY LABORATORY Embedded Images 4 9:47 AM CDT DERMATOPATHOLOGY LABORATORY Pathology/Cytolo gy TISSUE SPECIMEN FROM SKIN / Unknown 10/27/2023 1:54 PM CDT 10/28/2023 11:08 AM CDT Nidhi Smith MD LAB - PATHOLOGY/CYTOLOGY ORD ERABLES Edited Result - Final DERMATOPATHOLOGY LABORATORY [facility] - Department of Dermatology [facility] Medicine [address] [place] [address], [address] [phone] documented in this encounter Visit Diagnoses Not on filedocumented in this encounter Care Teams Right Of Way Man Relationship Specialty Start Date End Date Mj Duran DO [address] [place] [address] PCP - General Internal Medicine 08/04/16 [place] [address] [place] [address] Orthopedic Surgery 08/04/16 documented as of this encounter
--- OUTSIDE RECORDS SUMMARY | 2025-05-25 14:09 | XMS_ITS | Encounter Summary ---
Author Organization [facility] Healthcare Address [address] [place] [address] Care Team Providers Care Nail Sticker Name Role Phone Mj Duran MD Primary Care Provider [phone] No, Physician Unavailable Jerson Ndiaye DO Primary Care Provider [phone] Encounter Details Date Type Department Care Team (Late st Contact Info) Description 08/22/2020 Telephone [facility] - Interventional Radiology [address] [place] [address] Deann Coker RN Social History Tobacco Use Types Packs/Day Years Used Date Smoking Tobacco: Never Smokeless Tobacco: Never Alcohol Use Standard Drinks/Week Comments Yes 3 (1 standard drink = 0.6 oz pur e alcohol) Comments No Sex and Gender Information Value Date Recorded Sex Assigned at Not on file Legal Sex Female 1:28 AM METHODS SPECIALIST Gender Identity Female 12/20/2021 2:42 PM CDT Sexual Orientation Not on file documented as of this encounter Plan of Treatment Not on file documented as of this encounter Results * Protime-INR (08/24/2020 9:00 AM METHODS SPECIALIST) PT 11.1 10.0 - 13.0 sec [facility] INR 0.9 0.9 - 1.2 [facility] Comment: Interpretive data Oral anticoagulant therapeutic ranges: Venous thromboembolism prophylaxis or treatment: 2.0-3.0 CARDIOLOGY Standard range: 2.0-3.0 High-intensity range: 2.5-3.5 Refer to indication-specific guidelines for appropriate target ranges for prosthetic heart valve replacement. Current interpretive data was last revised on 2019. Blood specimen (specimen) 08/24/2020 9:00 AM METHODS SPECIALIST 08/24/2020 9:38 AM METHODS SPECIALIST Alex Lopez MD LAB BLOOD ORDERABLES Final Result Performing Organization Address [facility] de Phone Number [facility] [address] [place] [address] * aPTT (08/24/2020 9:00 AM METHODS SPECIALIST) [facility] aPTT 30 26 - 36 sec [facility] Comment: Interpretive data Heparin therapeutic range: 52-80 seconds Range based on correlation with therapeutic heparin activity range of 0.3-0.7 units/ml. Current interpretive data was last revised on 2019. Blood specimen (specimen) 08/24/2020 9:00 AM METHODS SPECIALIST 08/24/2020 9:38 AM METHODS SPECIALIST Alex Lopez MD LAB BLOOD ORDERABLES Final Result Performing Organization Address [facility] de Phone Number [facility] [address] [facility] [place] [address] * (ABNORMAL) CBC with auto differential (08/24/2020 9:00 AM METHODS SPECIALIST) [facility] WBC 6.3 3.8 - 9.9 K/cumm [facility] Hgb 13.3 11.9 - 15.5 g/dL [facility] Hct 41.7 35.6 - 45.5 % [facility] Plt 273 150 - 400 K/cumm [facility] MPV 10.4 9.1 - 12.3 fL [facility] RBC 4.41 3.90 - 5.20 M/cumm [facility] MCV 94.6 81.3 - 96.4 fL [facility] MCH 30.2 27.1 - 33.3 pg [facility] MCHC 31.9(L) 32.3 - 35.7 g/dL [facility] RDW CV 12.5 11.1 - 14.9 % [facility] RDW SD 43.5 35.7 - 48.1 fL [facility] NRBC abs 0.00 0.00 - 0.01 K/cumm [facility] Blood specimen (specimen) 08/24/2020 9:00 AM METHODS SPECIALIST 08/24/2020 9:38 AM METHODS SPECIALIST Alex Lopez MD LAB BLOOD ORDERABLES Final Result [facility] [address] Department [place] [address] documented in this encounter Visit Diagnoses Diagnosis Renal mass, right- Primary Unspecified disorder of kidney and ureter documented in this encounter Care Teams Nail Sticker Relationship Specialty Start Date End Date Mj Duran MD [address] [facility] [address] [place] [address] PCP - General 12/22/16 10/13/24 Jerson Ndiaye DO PCP - General Internal Medicine 10/14/24 No, Physician 07/24/23 documented as of this encounter
--- OUTSIDE RECORDS SUMMARY | 2025-05-25 14:09 | XMS_ITS | Encounter Summary ---
Author Organization [employer] Address 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
--- OUTSIDE RECORDS SUMMARY | 2025-05-25 14:09 | XMS_ITS ---
Author Organization [facility] Address [address] [place] [address] Care Team Providers Care Underground Mine Superintendent Name Role Phone No, Physician Unavailable Jerson Ndiaye DO Primary Care Provider [phone] Active Problems Problem Noted Date Diagnosed Date Renal mass, right 07/23/2023 Primary hypertension 07/23/2023 History of CVA (cerebrovascular accident) 2022 Capsular contracture of breast implant 8 Overview (07/15/2018): Added automatically from request for surgery [id number] Ruptured right breast implant 07/15/2018 Overview (07/15/2018): Added automatically from request for surgery [id number] Ductal carcinoma in situ (DCIS) of breast 2017 Overview (07/15/2018): Added automatically from request for surgery [id number] Melanocytic nevus of trunk 09/23/2017 Insect bite 03/24/2017 Multiple benign melanocytic nevi 03/24/2017 Telangiectasia disorder 09/24/2016 Seborrheic keratosis, inflamed 09/24/2016 Keratinizing cyst 09/24/2016 Complex tear of medial menis cus of right knee as current injury 08/30/2016 Basal cell carcinoma (BCC) of anterior chest Eustachian tube dysfunction 12/06/2015 Arthralgia of temporomandibular joint 12/06/2015 History of nonmelanoma skin cancer 12/05/2014 Milia 12/05/2014 Lentigo 07/26/2014 Actinic keratosis 12/31/2012 Seborrheic keratoses 12/31/2012 Skin neoplasm 06/25/2012 Hematuria 09/13/2009 Sebaceous cyst 09/12/2009 Encounter for preventive health examination 11/2008 CVA (cerebral vascular accident) Current Treatment and Therapy Plans No current plan information found. Past Treatment and Therapy Plans No past plan information found. Lifetime Dose Tracking * Chemical Lifetime Dose Automatic Entry Manual Entr y Radiation 77.03 mSv 77.03 mSv 0 mSv Fluoro Time 6.5 minutes 6.5 minutes 0 minutes Air kerma at the reference point (Ka,r) 3,735.01 mGy 3 ,735.01 mGy 0 mGy DLP 572 mGycm 572 mGycm 0 mGycm
--- OUTSIDE RECORDS SUMMARY | 2025-05-25 14:09 | XMS_ITS | Clinical Summary ---
Author Organization [facility] Address [address] [facility] Attn: Epic Prelude ADT NILESH FUENTES [address] Care Team Providers Care Photo Booth Operator Name Role Phone Jill Davis MD Primary Care Provider Unavail able Social History Tobacco Use Types Packs/Day Years Used Date Smoking Tobacco: Never Assessed Comments Unknown Sex and Gender Information Value Date Recorded Sex Assigned at Not on file Legal Sex Female 3:01 AM PODIATRY DOCTOR Gender Identity Not on file Sexual Orientation Not on file Plan of Treatment Health Maintenance Due Date Last Done Comments DTAP/TDAP/TD VACCINES (1 - Tdap) 1967 PNEUMOCOCCAL VACCINE 50+ YEARS (1 of 1 - PCV) 10/05/18 99 ZOSTER VACCINE (1 of 2) 1998 OSTEOPOROSIS SCREENING 2013 RSV VACCINE (60+ or ) (1 - 1-dose 75+ series) 2023 INFLUENZA VACCINE (#1) 2025 Care Teams Photo Booth Operator Relationship Specialty Start Date End Date Jill Davis MD NO ADDRESS ON FILE PCP - General 07/06/00
--- OUTSIDE RECORDS SUMMARY | 2025-05-25 14:09 | XMS_ITS | Encounter Summary ---
Author Organization [facility] Healthcare Address [address] [place] [address] Care Team Providers Care Grocery Buyer Name Role Phone Mj Duran MD Primary Care Provider [phone] No, Physician Unavailable Jerson Ndiaye DO Primary Care Provider [phone] Encounter Details Date Type Department Care Team (Late st Contact Info) Description 10/12/2020 Telephone [facility] - Imaging [address] [place] [address] Transcribed Order, Provider Social History Tobacco Use Types Packs/Day Years Used Date Smoking Tobacco: Never Smokeless Tobacco: Never Alcohol Use Standard Drinks/Week Comments Yes 3 (1 standard drink = 0.6 oz pur e alcohol) Comments No Sex and Gender Information Value Date Recorded Sex Assigned at Not on file Legal Sex Female 1:28 AM CHANNEL LIP WETTER Gender Identity Female 12/20/2021 2:42 PM CDT Sexual Orientation Not on file documented as of this encounter Plan of Treatment Not on file documented as of this encounter Visit Diagnoses Not on filedocumented in this encounter Care Teams Grocery Buyer Relationship Specialty Start Date End Date Mj Duran MD [address] [facility] [address] [place] [address] PCP - General 12/22/16 10/13/24 Jerson Ndiaye DO PCP - General Internal Medicine 10/14/24 No, Physician 07/24/23 documented as of this encounter
--- OUTSIDE RECORDS SUMMARY | 2025-05-25 14:09 | XMS_ITS | Encounter Summary ---
Author Organization [facility] Healthcare Address [address] [place] [address] Care Team Providers Care Etl Informatica Developer Name Role Phone Mj Duran MD Primary Care Provider [phone] No, Physician Unavailable Jerson Ndiaye DO Primary Care Provider [phone] Encounter Details Date Type Department Care Team (Late st Contact Info) Description 07/25/2020 Telephone [facility] - Imaging [address] [place] [address] [place] [address] [address] Social History Tobacco Use Types Packs/Day Years Used Date Smoking Tobacco: Never Smokeless Tobacco: Never Alcohol Use Standard Drinks/Week Comments Yes 3 (1 standard drink = 0.6 oz pur e alcohol) Comments No Sex and Gender Information Value Date Recorded Sex Assigned at Not on file Legal Sex Female 1:28 AM POST ANESTHESIA ROOM NURSE Gender Identity Female 12/20/2021 2:42 PM CDT Sexual Orientation Not on file documented as of this encounter Plan of Treatment Not on file documented as of this encounter Visit Diagnoses Not on filedocumented in this encounter Care Teams Etl Informatica Developer Relationship Specialty Start Date End Date Mj Duran MD [address] [facility] [address] [place], [place] [id number] PCP - General 12/22/16 10/13/24 Jerson Ndiaye DO PCP - General Internal Medicine 10/14/24 No, Physician 07/24/23 documented as of this encounter
--- OUTSIDE RECORDS SUMMARY | 2025-05-25 14:09 | XMS_ITS | Clinical Summary ---
Author Organization [facility] Address [address] [place] [address] Care Team Providers Care Farmworker Chicken Farm Name Role Phone No, Physician Unavailable Jerson Ndiaye DO Primary Care Provider [phone] Allergies No known active allergies Medications Lactobacillus acidophilus (PROBIOTIC ORAL) Take 1 tablet by mouth daily with breakfast. Stopped for surgery Active cholecalciferol 25 mcg (1,000 unit) tablet Take 1 tablet (1,000 Units total) by mouth daily Active losartan-hydroCH LOROthiazide (HYZAAR) 50-12.5 mg per tablet Take 1 tablet by mouth daily Active multivitamin capsule Take 1 capsule by mouth daily Active cyanocobalamin (Vitamin B-12) 1,000 mcg tablet Take 1 tablet (1,000 mcg total) by mouth daily Active acetaminophen (TYLENOL) 500 mg tablet Take 1 tablet (500 mg total) by mouth every 6 (six) hours as needed for pain Active ondansetron (ZOFRAN) 4 mg tablet Take 1 tablet (4 mg total) by mouth every 6 (six) hours as needed for nausea or vomiting 30 tablet 3 Active senna (SENOKOT) 8.6 mg tablet Take 1 tablet by mouth 2 (two) times a day for 7 days 14 tablet 3 Active oxyCODONE (ROXICODONE) 5 mg immediate release tabletIndication s:Pain Take 1 tablet (5 mg total) by mouth every 4 (four) hours as needed for pain 3 Active Active Problems Problem Noted Date Diagnosed Date Renal mass, right 07/23/2023 Primary hypertension 07/23/2023 History of CVA (cerebrovascular accident) 2022 Capsular contracture of breast implant 8 Overview (07/15/2018): Added automatically from request for surgery [id number] Ruptured right breast implant 07/15/2018 Overview (07/15/2018): Added automatically from request for surgery [id number] Ductal carcinoma in situ (DCIS) of breast 2017 Overview (07/15/2018): Added automatically from request for surgery [id number] Melanocytic nevus of trunk 09/23/2017 Insect bite [...] health examination 11/2008 CVA (cerebral vascular accident) Surgical History Surgery Date Site/Laterality Comments FACELIFT Reported Hx Of 'Facelift' - (Added by TW Conv) KNEE SURGERY 08/17/2015 - 08/16/2016 Right arthroscopy BREAST SURGERY 08/17/1984 - 08/16/1985 Bilateral breast augmentation BREAST LUMPECTOMY 08/17/1999 - 08/16/2000 Bilateral for DCIS BREAST SURGERY 08/17/2002 - 08/16/2003 Bilateral replaced implants due to capsular contracture BREAST SURGERY to 1999 Bilateral for fibrocystic breast disease MOHS SURGERY 08/17/2013 - 08/16/2014 from forehead BASAL CELL CARCINOMA EXCISION 08/17/2017 - 08/16/2018 from anterior chest HYSTERECTOMY W/ BILATERAL SALPINGOOPHORECTOMY 08/17/1977 - 08/16/1978 endometriosis FLUID DRAIN SOFT TISSUE 07/21/2022 N/A ABSCESS CATHETER INJECTION 07/30/2022 N/A ABSCESS CATHETER INJECTION 08/06/2022 N/A FLUID DRAIN SOFT TISSUE 12/01/2022 N/A ABSCESS CATHETER INJECTION 04/06/2023 N/A CRYOABLATION RENAL RIGHT 07/23/2023 Right Medical History Medical History Date Comments Allergy status to unspecifie d drugs, medicaments and biological substances status History of seasonal allergie s - (Added by TW Conv) Chronic sinusitis Recurrent sinu s infections - (Added by TW Conv) Basal cell carcinoma of skin of face Basal cell carcinoma of skin of face - (Added by TW Conv) Breast cancer (HCC) 1999 s/p lumpecto my and XRT HTN (hypertension) BCC (basal cell carcinoma) anter ior chest CVA (cerebral vascular accident) (HCC) Neuromuscular disorder Family History Medical History Relation Name Comments Cancer Father Father Family history of malignant neoplasm - (Added by TW Conv) Relation Name Status Comments Father Father Social History Tobacco Use Types Packs/Day Years Used Date Smoking Tobacco: Never Smokeless Tobacco: Never Tobacco Cessation:Counseling Given: Not Answered Alcohol Use Standard Drinks/Week Comments Yes 3 (1 standard drink = 0.6 oz pur e alcohol) Personal Safety Answer Date Recorded Have you ever been in or are you currently in a harmful physical or emotional relationship or is someone making you feel afraid or unsafe? Denies 07/23/2023 Comments No Sex and Gender Information Value Date Recorded Sex Assigned at Not on file Legal Sex Female 1:28 AM HIGH VALUE ASSOCIATE Gender Identity Female 12/20/2021 2:42 PM CDT Sexual Orientation Not on file Obstetrics History Last Filed Vital Signs Vital Sign Reading Time Taken Comments Blood Pressure 105/49 07/24/2023 8:56 AM HIGH VALUE ASSOCIATE Pulse 79 07/24/2023 8:56 AM HIGH VALUE ASSOCIATE Temperature 36.6 C (97.8 F) 07/24/2023 8:56 AM HIGH VALUE ASSOCIATE Respiratory Rate 16 07/24/2023 8:56 AM HIGH VALUE ASSOCIATE Oxygen Saturation 96% 07/24/2023 8:56 AM HIGH VALUE ASSOCIATE Inhaled Oxygen Concentration - - Weight 68 kg (150 lb) 11/10/2024 12:13 PM CDT Height 157.5 cm (5' 2) 02/09/2024 11:07 AM CDT Body Mass Index 27.44 02/09/2024 11:07 AM CDT Plan of Treatment Health Maintenance Due Date Last Done Comments Depression Screening 1950 Hepatitis C Screening 1950 Osteoporosis Screening-Bone Density Scan 1950 DTaP/Tdap/Td Vaccine (1 - Tdap) 1959 Hepatitis B Screening 1966 Pneumococcal vaccine 65+ (1 of 1 - PCV) 1998 Zoster Vaccine (1 of 2) 1998 Well Visit 65+ 01/19/2021 01/20/2020 Fall Risk Assessment 07/24/2024 07/24/2023 Influenza Vaccine (#1) 2025 Breast Cancer Screening-Mammogram Discontinued 024 Procedures Procedure Name Priority Date/Time Associated Diagnosis Comments SCREENING MAMMOGRAM BILATERAL W ANDREW Schedule Routine, Read Routine (OP Routine) 04/04/2024 3:28 PM CDT Screening mammogram, encounter for from Last 3 Months or Most Recently Relevant to Health Maintenance Results * Screening Mammogram Bilateral W Andrew (04/04/2024 3:28 PM CDT) Anatomical Region Laterality Modality Breast Bilateral Mammography Narrative 04/04/2024 4:01 PM CDT Examination: Screening Mammogram Bilateral W Andrew: 04/04/24 Clinical: Screening mammogram, encounter for. Prior Study Comparisons: Comparison was made to the prior available relevant studies at the time of interpretation. Findings: Screening Mammogram Bilateral W Andrew Left 1) Post-Surgical Finding: There are post-surgical findings from a previous lumpectomy with radiation seen in the left breast. Right No significant masses, malignant type calcifications, skin thickening, nipple retraction, or significant lymphadenopathy is noted in this breast. Computer Aided Detection was utilized for the interpretation of this study. There are scattered areas of fibroglandular density. Patient has had implants removed for leakage into right axillary nodes. There is right axillary high density lymphadenopathy consistent with the implant leakage. The patient will be notified of results by letter. Impression: BI-RADS ATLAS category (overall): 2 - Benign There is no mammographic evidence of malignancy. Routine Screening Mammogram in 1 Yr is recommended for bilateral Overall Assessment: 2 - Benign us Self Screening Mammogram IMG MAMMO PROCEDURES Fi nal Result from Last 3 Months or Most Recently Relevant to Health Maintenance Insurance MEDICARE [facility] Member Subscriber Plan / Payer (Ef fective 2019-Present) Name:QuintinÁngel Relation to Subscriber:Self Name:Ángel Ribeiro Payer ID:[id number] Group ID:Not on file Type:[employer] Address: [address] [place] [id number] MEDICARE [facility] Member Subscriber Plan / Payer (Ef fective 2019-Present) Name:Ángel Ribeiro Relation to Subscriber:Self Name:Ángel Ribeiro Payer ID:[id number] Group ID:Not on file Type:[facility] Address: [address] [place] [address] MEDICARE [facility] Member Subscriber Plan / Payer ( fective 2019-Present) Name:Ángel Ribeiro Relation to Subscriber:Self Name:Ángel Ribeiro Payer ID:[id number] Group ID:Not on file Type:[facility] [employer] Address: [address] [place] [address] Advance Directives For more information, please contact: [phone] Documents on File Type Date Recorded Patient Media Technician Expl anation ADVANCE DIRECTIVE 08/24/2018 8:03 AM * Full Code (Latest Code Status on File) Date Activated Date Inactivated Comments 07/23/2023 8:36 PM 07/24/2023 5:02 PM * Full Code Date Activated Date Inactivated Comments 08/24/2020 11:03 AM 08/24/2020 4:49 PM Care Teams Farmworker Chicken Farm Relationship Specialty Start Date End Date Jerson Ndiaye DO PCP - General Internal Medicine 10/14/24 No, Physician 07/24/23
== END 2025-05-25 14:04 | disposition home or self-care (01) ==
PROVIDERS: PCP Internal Medicine; Visit Provider Internal Medicine
DX: M25.511 Pain in right shoulder (principal); R07.9 Chest pain, unspecified
CPT/HCPCS: 71046; 73030

== ENCOUNTER 2025-06-13 09:43 | Outpatient (CLI) | payer MEDICARE, OTHER, SELFPAY ==
--- NOTE | 2025-06-13 09:48 | EST_ITS ---
Patient Info Name: Ángel Ribeiro Age: 74 years : 1950 Gender: Female Ht: 61 in Wt: 156 lbs BSA: 1.77 m2 HR: 74 bpm BP: 125 / 78 mmHg Technical Quality: Good Exam Date: 06/13/2025 10:24 AM Patient Status: O Admit Date: 06/13/2025 Exam Type: CA stress echo Treadmill exercise stress echocardiogram is performed. Staff Referring Physician: Jerson Ndiaye DO Parts Washer: Yuan Cortes III Attending Provider: Jerson Ndiaye DO Exercise Technologist: Karen Fox Exercise Physician: Marco Nicole DO Summary 1. 1. Negative Phillip exercise stress test for ischemic ST changes by ECG criteria. 2. 2. Good functional capacity, achieving 6.5 METs of workload. 3. 3. Appropriate HR response to exercise. 4. 4. Appropriate HR recovery at 1 minute post exercise. 5. 5. Negative stress echocardiogram for ischemia by wall motion analysis. 6. 6. Patient informed of the above results. Stress Echo Findings Left Ventricle Appropriate increase in LV endocardial thickening with systole. Appropriate augmentation of contractility with systole. No wall motion abnormality. Left Ventricle Normal LV systolic function, no wall motion abnormality. Protocol: Phillip Stress ECG Details Stage: REST Duration (min): 0 min : 52 sec Speed (mph): 0.0 Grade (%): 0 HR (bpm): 82 SBP (mmHg): 125 DBP (mmHg): 78 METS: --- Stage: REST Duration (min): 13 min : 37 sec Speed (mph): 0.0 Grade (%): 0 HR (bpm): 86 SBP (mmHg): 125 DBP (mmHg): 78 METS: --- Stage: STAGE 1 Duration (min): 1 min : 0 sec Speed (mph): 1.7 Grade (%): 10 HR (bpm): 102 SBP (mmHg): 125 DBP (mmHg): 78 METS: --- Stage: STAGE 1 Duration (min): 2 min : 0 sec Speed (mph): 1.7 Grade (%): 10 HR (bpm): 109 SBP (mmHg): 125 DBP (mmHg): 78 METS: --- Stage: STAGE 1 Duration (min): 3 min : 0 sec Speed (mph): 1.7 Grade (%): 10 HR (bpm): 121 SBP (mmHg): 172 DBP (mmHg): 71 METS: --- Stage: STAGE 2 Duration (min): 1 min : 0 sec Speed (mph): 2.5 Grade (%): 12 HR (bpm): 137 SBP (mmHg): 172 DBP (mmHg): 71 METS: --- Stage: STAGE 2 Duration (min): 1 min : 5 sec Speed (mph): 0.0 Grade (%): 0 HR (bpm): 138 SBP (mmHg): 172 DBP (mmHg): 71 METS: --- Stage: RECOVERY Duration (min): 0 min : 54 sec Speed (mph): 0.0 Grade (%): 0 HR (bpm): 115 SBP (mmHg): 203 DBP (mmHg): 68 METS: --- Stage: RECOVERY Duration (min): 1 min : 54 sec Speed (mph): 0.0 Grade (%): 0 HR (bpm): 87 SBP (mmHg): 203 DBP (mmHg): 68 METS: --- Stage: RECOVERY Duration (min): 2 min : 54 sec Speed (mph): 0.0 Grade (%): 0 HR (bpm): 79 SBP (mmHg): 160 DBP (mmHg): 61 METS: --- Stage: RECOVERY Duration (min): 3 min : 32 sec Speed (mph): 0.0 Grade (%): 0 HR (bpm): 79 SBP (mmHg): 160 DBP (mmHg): 61 METS: --- Rest HR: 86 bpm Peak HR: 138 bpm Rest Sys BP: 125 mmHg Peak Sys BP: 203 mmHg Max Pred HR: 144 bpm % Max Pred HR: 96 % Target HR: 122 bpm Max RPP: 28,014 bpm*mmHg Singh Score: -2 Termination Reason: Reached target heart rate or workload Cardiac Symptoms: Shortness of breath Max ST Seg Deviation: 1 mm Total Time: 4 min : 5 sec Rest Daly BP: 78 mmHg Peak Daly BP: 68 mmHg Angina Score: None Total METS: 6.5 Resting ECG Sinus rhythm. Stress ECG No ST changes. Arrhythmias None. Report Signatures Stress ECG Echo
--- OUTSIDE RECORDS SUMMARY | 2025-06-13 10:50 | XMS_ITS | Encounter Summary ---
Author Organization [facility] Address [facility] [place] [address] Care Team Providers Care Boat Dock Operator Name Role Phone Jose Jay MD Unavailable Mj Duran DO Primary Care Provider [phone] Encounter Details Date Type Department Care Team (Late st Contact Info) Description 10/27/2023 Lab Requisition [facility] - DermPath Lab [address] [facility], [place] [id number] Nidhi Smith MD [address] [facility] [address] [place] [address] Social History Tobacco Use Types Packs/Day Years Used Date Smoking Tobacco: Never Alcohol Use Standard Drinks/Week Comments Yes 0 (1 standard drink = 0.6 oz pur e alcohol) rare Comments Unknown Sex and Gender Information Value Date Recorded Sex Assigned at Not on file Legal Sex Female 9:48 AM SULFUR BURNER Gender Identity Not on file Sexual Orientation [...] PM CDT) Case Report Dermatopathology Report Case: [id number] Authorizing Provider: Nidhi Smith MD Collected: 10/27/2023 01:54 PM Ordering Location: [facility] - Received: 10/28/2023 11:08 AM [...] 1524 CDT Clinical History R/O BCC Angioma ,[place]ule 9:47 AM CDT DERMATOPATHOLOGY LABORATORY Gross [...] characteristic determined by the Dermatopathology Laboratory at [facility], directed by Dr. Mariza Arreola. These tests need not be, and therefore are not, approved by the [place] Food and Drug Administration. The tests are used for clinical purposes. Billing Codes Specimen Charges Stain Charges 01709 1 4 9:47 AM CDT DERMATOPATHOLOGY LABORATORY Embedded Images 4 9:47 AM CDT DERMATOPATHOLOGY LABORATORY Pathology/Cytolo gy TISSUE SPECIMEN FROM SKIN / Unknown 10/27/2023 1:54 PM CDT 10/28/2023 11:08 AM CDT Nidhi Smith MD LAB - PATHOLOGY/CYTOLOGY ORD ERABLES Edited Result - Final DERMATOPATHOLOGY LABORATORY [facility] - Department of Dermatology [facility] Medicine [address] [place] [address], [address] [phone] documented in this encounter Visit Diagnoses Not on filedocumented in this encounter Care Teams Boat Dock Operator Relationship Specialty Start Date End Date Mj Duran DO [address] [place] [address] PCP - General Internal Medicine 08/04/16 [place] [address] [place] [address] [place] [address] Orthopedic Surgery 08/04/16 documented as of this encounter
--- OUTSIDE RECORDS SUMMARY | 2025-06-13 10:50 | XMS_ITS | Encounter Summary ---
Author Organization [facility] Healthcare Address [address] [place] [address] Care Team Providers Care Golf Club Maker Name Role Phone Mj Duran MD Primary Care Provider [phone] No, Physician Unavailable Jerson Ndiaye DO Primary Care Provider Encounter Details Date Type Department Care Team (Late st Contact Info) Description 10/12/2020 Telephone [facility] - Imaging [address] [place] [address] Transcribed Order, Provider Social History Tobacco Use Types Packs/Day Years Used Date Smoking Tobacco: Never Smokeless Tobacco: Never Alcohol Use Standard Drinks/Week Comments Yes 3 (1 standard drink = 0.6 oz pur e alcohol) Comments No Sex and Gender Information Value Date Recorded Sex Assigned at Not on file Legal Sex Female 1:28 AM PRETZEL PACKER Gender Identity Female 12/20/2021 2:42 PM CDT Sexual Orientation Not on file documented as of this encounter Plan of Treatment Not on file documented as of this encounter Visit Diagnoses Not on filedocumented in this encounter Care Teams Golf Club Maker Relationship Specialty Start Date End Date Mj Duran MD [address] [facility] [address] [place] [address] PCP - General 12/22/16 10/13/24 Jerson Ndiaye DO PCP - General Internal Medicine 10/14/24 No, Physician 07/24/23 documented as of this encounter
--- OUTSIDE RECORDS SUMMARY | 2025-06-13 10:50 | XMS_ITS | Clinical Summary ---
Author Organization [facility] Address [address] [place] [address] Care Team Providers Care Flume Worker Name Role Phone No, Physician Unavailable Jerson Ndiaye DO Primary Care Provider [phone] Allergies No known active allergies Medications Lactobacillus [...] (07/15/2018): Added automatically from request for surgery [id number] Ruptured right breast implant 07/15/2018 Overview (07/15/2018): Added automatically from request for surgery [id number] Ductal carcinoma in situ (DCIS) of breast 2017 Overview (07/15/2018): Added automatically from request for surgery [id number] Melanocytic nevus of trunk 09/23/2017 Insect bite [...] on file Legal Sex Female 1:28 AM MAINTENANCE MACHINE REPAIRER Gender Identity Female 12/20/2021 2:42 PM CDT Sexual Orientation Not on file Obstetrics History Last Filed Vital Signs Vital Sign Reading Time Taken Comments Blood Pressure 105/49 07/24/2023 8:56 AM MAINTENANCE MACHINE REPAIRER Pulse 79 07/24/2023 8:56 AM MAINTENANCE MACHINE REPAIRER Temperature 36.6 C (97.8 F) 07/24/2023 8:56 AM MAINTENANCE MACHINE REPAIRER Respiratory Rate 16 07/24/2023 8:56 AM MAINTENANCE MACHINE REPAIRER Oxygen Saturation 96% 07/24/2023 8:56 AM MAINTENANCE MACHINE REPAIRER Inhaled Oxygen Concentration - - Weight 68 [...] Recently Relevant to Health Maintenance Insurance MEDICARE [facility] MEDICARE [facility] MEDICARE [facility] Advance Directives For more information, please contact: [phone] Documents on File Type Date Recorded Patient Cable Way Operator Expl anation ADVANCE DIRECTIVE 08/24/2018 8:03 AM * Full Code (Latest Code Status on File) Date Activated Date Inactivated Comments 07/23/2023 8:36 PM 07/24/2023 5:02 PM * Full Code Date Activated Date Inactivated Comments 08/24/2020 11:03 AM 08/24/2020 4:49 PM Care Teams Flume Worker Relationship Specialty Start Date End Date Jerson Ndiaye DO PCP - General Internal Medicine 10/14/24 No, Physician 07/24/23
--- OUTSIDE RECORDS SUMMARY | 2025-06-13 10:50 | XMS_ITS | Clinical Summary ---
Author Organization [facility] [employer] Address [address] [facility] [place] [address] Care Team Providers Care Data Entry Assistant Name Role Phone Jose Jay MD Unavailable [phone] Mj Duran DO Primary Care Provider [phone] Source Comments [facility] [employer],non-owned Affiliates and Associated Physician Practices is amultiple site organization consisting of ambulatory clinics and hospital sitesin [place], [place] and [place]. This disclosure is being madepursuant to the Care Everywhere program and may not contain all information available regarding this patient. Last updated 18.[facility] [employer] Allergies No known active allergies Medications * Be aware that medications may not be up to date on this document. Alwaysverify current medications with the patient. BENICAR HCT 20-12.5 MG tablet TK 1 T PO QD 7 016 Active LUMIGAN 0.01 % ophth solution INT 1 GTT INTO OU QPM 5 016 Active diclofenac sodium EC (VOLTAREN) 75 MG tablet Take 1 Tab by mouth 2 times daily 60 Tab 5 016 Active Additional Information Patient not taking.Reported on 11/05/2016 oxyCODONE-acetaminophe n (PERCOCET) 7.5-325 MG tablet Take 1-2 Tabs by mouth every 6 hours as needed for Pain 50 Tab 017 Active Additional Information Patient not taking.Reported on 11/05/2016 ondansetron (ZOFRAN) 4 MG tablet Take 1 Tab by mouth every 4 hours as needed for Nausea/Vomiting 10 Tab 017 Active Additional Information Patient not taking.Reported on 11/05/2016 meloxicam (MOBIC) 15 MG tabletIndications:Infl ammation Take 1 Tab by mouth once daily Reasons: Inflammation 30 Tab 1 Active naproxen (NAPROSYN) 500 MG tabletIndications:Stat us post arthroscopy of knee TK 1 T PO BID WF 3 017 Active azilsartan-chlorthalid one (Edarbyclor) 40-12.5 MG tablet Ac tive bimatoprost (Latisse) 0.03 % solution APPLY NIGHTLY TO LASHES Active losartan - hydroCHLOROthiazide (Hyzaar) 50-12.5 MG tablet Take 1 (one) tablet by mouth once daily Active Active Problems Problem Noted Date Diagnosed Date Complex tear of medial menis cus of right knee as current injury 08/30/2016 Social History Tobacco Use Types Packs/Day Years Used Date Smoking Tobacco: Never Alcohol Use Standard Drinks/Week Comments Yes 0 (1 standard drink = 0.6 oz pur e alcohol) rare Comments Unknown Sex and Gender Information Value Date Recorded Sex Assigned at Not on file Legal Sex Female 9:48 AM DEV OPS ENGINEER Gender Identity Not on file Sexual Orientation Not on file Last Filed Vital Signs Vital Sign Reading Time Taken Comments Blood Pressure 130/80 10/21/2016 12:45 PM DEV OPS ENGINEER Pulse 73 10/21/2016 12:45 PM DEV OPS ENGINEER Temperature 36.6 C (97.8 F) 10/21/2016 12:15 PM DEV OPS ENGINEER Respiratory Rate 16 10/21/2016 12:15 PM DEV OPS ENGINEER Oxygen Saturation 96% 10/21/2016 12:45 PM DEV OPS ENGINEER Inhaled Oxygen Concentration - - Weight 71.7 kg (158 lb) 10/20/2016 10:01 AM DEV OPS ENGINEER Height 157.5 cm (5' 2) 10/20/2016 10:01 AM DEV OPS ENGINEER Body Mass Index 28.9 10/20/2016 10:01 AM DEV OPS ENGINEER Plan of Treatment Health Maintenance Due Date Last Done Comments BONE DENSITY TESTING 1950 MEDICARE AWV 12 MONTHS 1950 HEPATITIS C SCREENING 10/01/1966 DTAP/TDAP/TD VACCINES (1 - Tdap) 1967 PNEUMOCOCCAL VACCINE 50+ (1 of 1 - PCV) 1998 ZOSTER VACCINE (1 of 2) 1998 Respiratory Syncytial Virus (RSV) Vaccine Pt: or over 60 yrs (1 - 1-dose 75+ series) 2023 DEPRESSION SCREENING 08/17/2024 COVID-19 VACCINE ( - 2023-2 5 season) 2025 INFLUENZA VACCINE (#1) 2025 HEPATITIS B VACCINE Aged Out No longe r eligible based on patient's age to complete this topic HIB VACCINE Aged Out No longer eligi ble based on patient's age to complete this topic HPV VACCINE Aged Out No longer eligi ble based on patient's age to complete this topic MENINGOCOCCAL (Group B) VACC INE SHARED DECISION-MAKING Aged Out No longer eligibl e based on patient's age to complete this topic MENINGOCOCCAL GROUPS A/C/Y/W VACCINE Aged Out No longer eligible b ased on patient's age to complete this topic Insurance MEDICARE MEDICARE [facility] Advance Directives Documents on File Type Date Recorded 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
--- OUTSIDE RECORDS SUMMARY | 2025-06-13 10:50 | XMS_ITS ---
Author Organization [facility] Address [address] [place] [address] Care Team Providers Care Telephone Clerk Telegraph Office Name Role Phone No, Physician Unavailable Jerson Ndiaye DO Primary Care Provider [phone] Active Problems Problem Noted Date Diagnosed Date Renal mass, right 07/23/2023 Primary hypertension 07/23/2023 History of CVA (cerebrovascular accident) 2022 Capsular contracture of breast implant 8 Overview (07/15/2018): Added automatically from request for surgery [id number] Ruptured right breast implant 07/15/2018 Overview (07/15/2018): Added automatically from request for surgery [id number] Ductal carcinoma in situ (DCIS) of breast 2017 Overview (07/15/2018): Added automatically from request for surgery [id number] Melanocytic nevus of trunk 09/23/2017 Insect bite [...]
--- OUTSIDE RECORDS SUMMARY | 2025-06-13 10:50 | XMS_ITS | Encounter Summary ---
Author Organization [facility] Address [address] [place] [address] Care Team Providers Care Microarray Analyst Name Role Phone Jose Jay MD Unavailable Mj Duran DO Primary Care Provider [phone] Encounter Details Date Type Department Care Team (Late st Contact Info) Description 10/17/2016 [facility] Outpatient Visit [facility] Orthopedics [address] [place] [address] Melchor Alvarado MD [address] [place] [address] Social History Tobacco Use Types Packs/Day Years Used Date Smoking Tobacco: Never Comments Unknown Sex and Gender Information Value Date Recorded Sex Assigned at Not on file Legal Sex Female 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
--- OUTSIDE RECORDS SUMMARY | 2025-06-13 10:50 | XMS_ITS | Encounter Summary ---
Author Organization [facility] Healthcare Address [address] [place] [address] Care Team Providers Care Hotel Director Name Role Phone Mj Duran MD Primary Care Provider [phone] No, Physician Unavailable Jerson Ndiaye DO Primary Care Provider [phone] Encounter Details Date Type Department Care Team (Late st Contact Info) Description 08/22/2020 Telephone [facility] - Interventional Radiology [address] [place] [address] Deann Coker RN Social History Tobacco Use Types Packs/Day Years Used Date Smoking Tobacco: Never Smokeless Tobacco: Never Alcohol Use Standard Drinks/Week Comments Yes 3 (1 standard drink = 0.6 oz pur e alcohol) Comments No Sex and Gender Information Value Date Recorded Sex Assigned at Not on file Legal Sex Female 1:28 AM WATER REGULATOR AND VALVE REPAIRER Gender Identity Female 12/20/2021 2:42 PM CDT Sexual Orientation Not on file documented as of this encounter Plan of Treatment Not on file documented as of this encounter Results * Protime-INR (08/24/2020 9:00 AM WATER REGULATOR AND VALVE REPAIRER) PT 11.1 10.0 - 13.0 sec [facility] INR 0.9 0.9 - 1.2 [facility] Comment: Interpretive data Oral anticoagulant therapeutic ranges: Venous thromboembolism prophylaxis or treatment: 2.0-3.0 CARDIOLOGY Standard range: 2.0-3.0 High-intensity range: 2.5-3.5 Refer to indication-specific guidelines for appropriate target ranges for prosthetic heart valve replacement. Current interpretive data was last revised on 2019. Blood specimen (specimen) 08/24/2020 9:00 AM WATER REGULATOR AND VALVE REPAIRER 08/24/2020 9:38 AM WATER REGULATOR AND VALVE REPAIRER Alex Lopez MD LAB BLOOD ORDERABLES Final Result Performing Organization Address [facility] de Phone Number [facility] [address] [facility] [place] [address] * aPTT (08/24/2020 9:00 AM WATER REGULATOR AND VALVE REPAIRER) [facility] aPTT 30 26 - 36 sec [facility] Comment: Interpretive data Heparin therapeutic range: 52-80 seconds Range based on correlation with therapeutic heparin activity range of 0.3-0.7 units/ml. Current interpretive data was last revised on 2019. Blood specimen (specimen) 08/24/2020 9:00 AM WATER REGULATOR AND VALVE REPAIRER 08/24/2020 9:38 AM WATER REGULATOR AND VALVE REPAIRER Alex Lopez MD LAB BLOOD ORDERABLES Final Result Performing Organization Address [facility] de Phone Number [facility] [address] [facility] [place] [address] * (ABNORMAL) CBC with auto differential (08/24/2020 9:00 AM WATER REGULATOR AND VALVE REPAIRER) [facility] WBC 6.3 3.8 - 9.9 K/cumm [facility] Hgb 13.3 11.9 - 15.5 g/dL [facility] Hct 41.7 35.6 - 45.5 % [facility] Plt 273 150 - 400 K/cumm [facility] MPV 10.4 9.1 - 12.3 fL [facility] RBC 4.41 3.90 - 5.20 M/cumm [facility] MCV 94.6 81.3 - 96.4 fL [facility] MCH 30.2 27.1 - 33.3 pg [facility] MCHC 31.9(L) 32.3 - 35.7 g/dL [facility] RDW CV 12.5 11.1 - 14.9 % [facility] RDW SD 43.5 35.7 - 48.1 fL [facility] NRBC abs 0.00 0.00 - 0.01 K/cumm [facility] Blood specimen (specimen) 08/24/2020 9:00 AM WATER REGULATOR AND VALVE REPAIRER 08/24/2020 9:38 AM WATER REGULATOR AND VALVE REPAIRER Alex Lopez MD LAB BLOOD ORDERABLES Final Result [facility] [address] [place] [address] documented in this encounter Visit Diagnoses Diagnosis Renal mass, right- Primary Unspecified disorder of kidney and ureter documented in this encounter Care Teams Hotel Director Relationship Specialty Start Date End Date Mj Duran MD [address] [place] [address] PCP - General 12/22/16 10/13/24 Jerson Ndiaye DO PCP - General Internal Medicine 10/14/24 No, Physician 07/24/23 documented as of this encounter
--- OUTSIDE RECORDS SUMMARY | 2025-06-13 10:50 | XMS_ITS | Encounter Summary ---
Author Organization [facility] Healthcare Address [address] [place] [address] Care Team Providers Care Thread Winder Automatic Name Role Phone Mj Duran MD Primary Care Provider [phone] No, Physician Unavailable Jerson Ndiaye DO Primary Care Provider [phone] Encounter Details Date Type Department Care Team (Late st Contact Info) Description 07/25/[address] [facility] - Imaging [address] [place] [address] [place] [address] [address] Social History Tobacco Use Types Packs/Day Years Used Date Smoking Tobacco: Never Smokeless Tobacco: Never Alcohol Use Standard Drinks/Week Comments Yes 3 (1 standard drink = 0.6 oz pur e alcohol) Comments No Sex and Gender Information Value Date Recorded Sex Assigned at Not on file Legal Sex Female 1:28 AM MEMBER OF CONGRESS Gender Identity Female 12/20/2021 2:42 PM CDT Sexual Orientation Not on file documented as of this encounter Plan of Treatment Not on file documented as of this encounter Visit Diagnoses Not on filedocumented in this encounter Care Teams Thread Winder Automatic Relationship Specialty Start Date End Date Mj Duran MD [address] [facility] [address] [place], [place] [id number] PCP - General 12/22/16 10/13/24 Jerson Ndiaye DO PCP - General Internal Medicine 10/14/24 No, Physician 07/24/23 documented as of this encounter
--- OUTSIDE RECORDS SUMMARY | 2025-06-13 10:50 | XMS_ITS | Encounter Summary ---
Author Organization [facility] Healthcare Address [address] [place] [address] Care Team Providers Care Parking Enforcement Specialist Name Role Phone Mj Duran MD Primary Care Provider [phone] No, Physician Unavailable Jerson Ndiaye DO Primary Care Provider [phone] Encounter Details Date Type Department Care Team (Late st Contact Info) Description 08/23/[address] [facility] - Interventional Radiology [address] [place] [address] Ale Pandey RN Social History Tobacco Use Types Packs/Day Years Used Date Smoking Tobacco: Never Smokeless Tobacco: Never Alcohol Use Standard Drinks/Week Comments Yes 3 (1 standard drink = 0.6 oz pur e alcohol) Comments No Sex and Gender Information Value Date Recorded Sex Assigned at Not on file Legal Sex Female 1:28 AM FULFILLMENT MAIL CLERK Gender Identity Female 12/20/2021 2:42 PM CDT Sexual Orientation Not on file documented as of this encounter Plan of Treatment Not on file documented as of this encounter Visit Diagnoses Not on filedocumented in this encounter Care Teams Parking Enforcement Specialist Relationship Specialty Start Date End Date Mj Duran MD [address] [facility] [address] [place] [address] PCP - General 12/22/16 10/13/24 Jerson Ndiaye DO PCP - General Internal Medicine 10/14/24 No, Physician 07/24/23 documented as of this encounter
--- OUTSIDE RECORDS SUMMARY | 2025-06-13 10:50 | XMS_ITS | Clinical Summary ---
Author Organization [facility] Address [address] [facility] Attn: Epic Prelude ADT NILESH FUENTES [address] Care Team Providers Care Alligator Trapper Name Role Phone Jill Davis MD Primary Care Provider Unavail able Social History Tobacco Use Types Packs/Day Years Used Date Smoking Tobacco: Never Assessed Comments Unknown Sex and Gender Information Value Date Recorded Sex Assigned at Not on file Legal Sex Female 3:01 AM PRIVATE CHEF Gender Identity Not on file Sexual Orientation Not on file Plan of Treatment Health Maintenance Due Date Last Done Comments DTAP/TDAP/TD VACCINES (1 - Tdap) 1967 PNEUMOCOCCAL VACCINE 50+ YEARS (1 of 1 - PCV) 10/05/18 99 ZOSTER VACCINE (1 of 2) 1998 OSTEOPOROSIS SCREENING 2013 RSV VACCINE (60+ or ) (1 - 1-dose 75+ series) 2023 INFLUENZA VACCINE (#1) 2025 Care Teams Alligator Trapper Relationship Specialty Start Date End Date Jill Davis MD NO ADDRESS ON FILE PCP - General 07/06/00
--- OUTSIDE RECORDS SUMMARY | 2025-06-13 10:50 | XMS_ITS | Encounter Summary ---
Author Organization [employer] Address [address] [place] [address] Care Team Providers Care Forms Designer Name Role Phone Jill Davis MD Primary [...] on file Legal Sex Female 3:01 AM MEAT STOCKER Gender Identity Not on file Sexual Orientation Not on file documented as of this encounter Plan of Treatment Not on file documented as of this encounter Visit Diagnoses Diagnosis Backache, unspecified- Primary documented in this encounter Care Teams Forms Designer Relationship Specialty Start Date End Date Jill Davis MD NO ADDRESS ON FILE PCP - General 07/06/00 documented as of this encounter
--- OUTSIDE RECORDS SUMMARY | 2025-06-13 10:50 | XMS_ITS | Encounter Summary ---
Author Organization [facility] Address [facility] [place] [address] Care Team Providers Care Litigation Docket Manager Name Role Phone Jose Jay MD Unavailable Mj Duran DO Primary Care Provider [phone] Encounter Details Date Type Department Care Team (Late st Contact Info) Description 12/29/2022 Lab Requisition [facility] - DermPath Lab [address] [facility] [place] [address] Nidhi Smith MD [address] [facility] [address] [place] [address] Social History Tobacco Use Types Packs/Day Years Used Date Smoking Tobacco: Never Alcohol Use Standard Drinks/Week Comments Yes 0 (1 standard drink = 0.6 oz pur e alcohol) rare Comments Unknown Sex and Gender Information Value Date Recorded Sex Assigned at Not on file Legal Sex Female 9:48 AM CHIEF ENGINEER WATERWORKS Gender Identity Not on file Sexual Orientation [...] PM CDT) Case Report Dermatopathology Report Case: [id number] Authorizing Provider: Nidhi Smith MD Collected: 12/29/2022 03:36 PM Ordering Location: [facility] DermPath Lab Received: 12/30/2022 03:39 PM Pathologist: [...] characteristic determined by the Dermatopathology Laboratory at [facility], directed by Dr. Mariza Arreola. These tests need not be, and therefore are not, approved by the [place] Food and Drug Administration. The tests are used for clinical purposes. Billing Codes Specimen Charges Stain Charges 79331 1 3 12:49 PM CDT DERMATOPATHOLOGY LABORATORY Embedded Images 3 12:49 PM CDT DERMATOPATHOLOGY LABORATORY Pathology/Cytolo gy TISSUE SPECIMEN FROM SKIN / Unknown 12/29/2022 3:36 PM CDT 12/30/2022 3:39 PM CDT Nidhi Smith MD LAB - PATHOLOGY/CYTOLOGY ORD ERABLES Final Result DERMATOPATHOLOGY LABORATORY [facility] - Department of Dermatology [facility] Medicine [address] [place] [address], [address] [phone] documented in this encounter Visit Diagnoses Not on filedocumented in this encounter Care Teams Litigation Docket Manager Relationship Specialty Start Date End Date Mj Duran DO [address] [facility] [address] [facility] [address] [place] [address] PCP - General Internal Medicine 08/04/[place] [address] [place] [id number] Orthopedic Surgery 08/04/16 documented as of this encounter
== END 2025-06-13 09:44 | disposition home or self-care (01) ==
LOC: ANHCARD 09:46
PROVIDERS: PCP Internal Medicine; Visit Provider Internal Medicine
DX: R07.9 Chest pain, unspecified (principal)
CPT/HCPCS: 93351